=== PATIENT | male | born 1945 | race Two or more races ===

== ENCOUNTER 2024-06-12 12:42 | Inpatient (IN) | payer OTHER, MEDICARE ==
[~2024-06-12] VITALS: Ht 177.8 cm; Wt 97.1 kg
--- NOTE | 2024-06-12 14:01 | ED.PDOC ---
Musculoskeletal HPI Comments 78 year old male brought in by building appraiser presents to the ED with chief complaint of laceration and foot swelling. Patient reports that he had fallen sometime last night before bed, losing balance and injuring his left fifth toe, causing a laceration. Pari [employer] Ticket Cashier relays that upon seeing the patient today, she noticed the laceration along with redness and swelling to his foot. Pari [employer] Ticket Cashier states that the patient saw his PCP today and was advised to come to the ED for sutures to be placed. Patient denies any numbness, weakness, chest pain, head injury, SOB, or further injury at this time. Chief Complaint: Lower Extremity Time Seen by MD: 13:55 Primary Care Provider: UNKNOWN Reviewed Notes: Nurses Notes, Medications, Allergies Allergies: Coded Allergies: NO KNOWN ALLERGIES (Unverified , 06/12/24) Information Source: Patient, Friend Mode of Arrival: Wheelchair Location: Left Extremity Location: Toe 4 Timing: Hours Prehospital treatment: None Severity: Moderate Able to Move Extremity: Yes Bear Weight: Limited Pain: Moderate Mechanism: Spontaneous Circumstances: Work Related Onset of Symptoms: After Trauma Symptoms: Swelling, Pain, Erythema DVT Risk Factors: NONE Associated signs and symptoms: Foot pain Past Medical History PAST MEDICAL HISTORY: Cancer, HTN Surgical History: Denies all surgeries Family History Family History: Reviewed,noncontributory to illness Social History Smoker: Non-Smoker Alcohol: Denies ETOH Use Drugs: Denies Drug Use Lives In: Home Constitutional: denies: chills, diaphoresis, fatigue, fever, malaise, sweats, weakness, others EENTM: denies: blurred vision, double vision, ear bleeding, ear discharge, ear drainage, ear pain, ear ringing, eye pain, eye redness, hearing loss, mouth pain, mouth swelling, nasal discharge, nose bleeding, nose congestion, nose pain, photophobia, tearing, throat pain, throat swelling, voice changes, others Respiratory: denies: cough, hemoptysis, orthopnea, SOB at rest, shortness of breath, SOB with excertion, stridor, wheezing, others Cardiovascular: reports: edema; denies: chest pain, dizzy spells, diaphoresis, Dyspnea on exertion, irregular heart beat, left arm pain, lightheadedness, palpitations, PND, syncope, others Gastrointestinal: denies: abdomen distended, abdominal pain, blood streaked bowels, constipated, diarrhea, dysphagia, difficulty swallowing, hematemesis, melena, nausea, poor appetite, poor fluid intake, rectal bleeding, rectal pain, vomiting, others Genitourinary: denies: burning, dysuria, flank pain, frequency, hematuria, incontinence, penile discharge, penile sore, pain, testicle pain, testicle swe lling, urgency, others Neurological: denies: dizziness, fainting, headache, left sided numbness, left sided weakness, numbness, paresthesia, pre-existing deficit, right sided numbness, right sided weakness, seizure, speech problems, tingling, tremors, weakness, others Musculoskeletal: denies: back pain, gout, joint pain, joint swelling, muscle pain, muscle stiffness, neck pain, others Integumetry: reports: change in color, laceration; denies: bruises, change in hair/nails, dryness, lesions, lumps, rash, wounds, others Allergic/Immunocompromised: denies: Difficulty Healing, Frequent Infections, Hives, Itching, others Hematologic/Lymphatic: denies: anemia, blood clots, easy bleeding, easy bruising, swollen glands, others Endocrine: denies: excessive hunger, excessive sweating, excessive thirst, excessive urination, flushing, intolerance to cold, intolerance to heat, unexplained weight gain, unexplained weight loss, others Psychiatric: denies: anxiety, bipolar disorder, depression, hopeless, panic disorder, schizophrenia, sleepless, suicidal, others All Other Systems: Reviewed and Negative Physical Exam General Appearance: No Apparent Distress, Normal HEENT: Normal ENT Inspection, Pharynx Normal, TMs Normal Neck: Full Range of Motion, Non-Tender, Normal, Normal Inspection Respiratory: Chest Non-Tender, Lungs Clear, No Accessory Muscle Use, No Respiratory Distress, Normal Breath Sounds Cardiovascular: No Edema, No JVD, No Murmur, No Gallop, Normal Peripheral Pulses, Regular Rate/Rhythm Breast Exam: Deferred Gastrointestinal: No Organomegaly, Non Tender, No Pulsatile Mass, Normal Bowel Sounds, Soft Genitalia: Deferred Pelvic: Deferred Rectal: Deferred Extremities: Leg edema (Bilateral lower extremity swelling worse to left with 3+ pitting edema), No calf tenderness, Normal capillary refill, Normal inspecti on, Normal range of motion, Non-tender Musculoskeletal : Apperance: Normal Neurologic: Alert, broadband technician II-XII nml as Tested, Normal Affect, Normal Mood, No Sensory Deficits Cerebellar Function: Normal Reflexes: Normal Skin: Dry, Lacerations (Circular laceration to the webbed space between 4th and 5th left toes.), Normal Color, Warm, Other (Mild erythema to top of left foot.) Lymphatic: No Adenopathy Was a procedure done? Was a procedure done?: Yes Sedation Sedation?: No Laceration Repair : Location Left web space between 4th and 5th digit Length 2 cm Anesthetic: Lidocaine Laceration Repair Wound Comple: epidermis/dermis repair Laceration Repair: Number of sutures (6), Skin, Nylon Informed consent obtained: Yes Risks, benefits, and alternati: Yes Reduction Indication: Dislocation Sedation: Consents obtained, Intra-articular Intra-articular anesthetic thais: Yes Post-reduction x-ray show: Acceptable Alignment Informed consent obtained: Yes Risks/benefits/alt described: Yes Notes Patient with dislocation of his left 5th digit. Intra-articular anesthetic placed. Multiple reduction attempts were made. There was some improvement in the alignment of the displaced phalanx. Patient also states he may have had a dislocation in childhood. There may be a chronic component to his current dislocation per Differential Diagnosis EXT Differential Diagnosis: Other Other Differential Diagnosis cellulitis, laceration, fluid overload, intracranial hemorrhage, spine fracture, sprain, strain, unsteady gait, toe fracture, UTI X-Ray, Labs, Meds, VS Vital Signs Date Time Temp Pulse Resp B/P (MAP) Pulse Ox O2 Delivery O2 Flow Rate FiO2 06/12/24 17:51 171/79 06/12/24 13:00 99.0 75 20 144/96 (112) 94 99.0 Lab Test 06/12/24 18:04 06/12/24 13:41 06/12/24 12:59 Range/Units Urine Color Pending Urine Clarity Pending Urine pH Pending Urine Specific [place] Pending Urine Protein Pending Urine Ketones Pending Urine Blood Pending Urine Nitrite Pending Urine Bilirubin Pending Urine Urobilinogen Pending Urine Leukocyte Esterase Pending Urine RBC Pending Urine Microscopic WBC Pending Urine Squamous Epithelial Cells Pending Urine Bacteria Pending Urine Glucose Pending White Blood Count 6.9 4.4-10.8 10^3/uL Red Blood Count 3.56 L 4.5-5.90 10^6/uL Hemoglobin 13.4 L 13.5-17.5 g/dL Hematocrit 39.2 L 41.0-53.0 % Mean Corpuscular Volume 110.1 H 80.0-100.0 fL Mean Corpuscular Hemoglobin 37.7 H 28.0-32.0 pg Mean Corpuscular Hemoglobin Concent 34.3 32.0-36.0 g/dL Red Cell Distribution Width 16.6 H 11.8-14.3 % Platelet Count 195 140-450 10^3/uL Mean Platelet Volume 7.1 6.9-10.8 fL Neutrophils (%) (Auto) 78.1 37.0-80.0 % Lymphocytes (%) (Auto) 13.0 10.0-50.0 % Monocytes (%) (Auto) 7.0 0.0-12.0 % Eosinophils (%) (Auto) 0.7 0.0-7.0 % Basophils (%) (Auto) 1.2 0.0-2.0 % Neutrophils # (Auto) 5.4 1.6-8.6 10 ^3/uL Lymphocytes # (Auto) 0.9 0.4-5.4 10 ^3/uL Monocytes # (Auto) 0.5 0-1.3 10 ^3/uL Eosinophils # (Auto) 0 0-0.8 10 ^3/uL Basophils # (Auto) 0.1 0-0.2 10 ^3/uL Nucleated Red Blood Cells 0.1 % Sodium Level 142 136-145 mmol/L Potassium Level 3.4 L 3.5-5.1 mmol/L Chloride Level 102 98-107 mmol/L Carbon Dioxide Level 27 20-31 mmol/L Anion Gap 13 5-15 Blood Urea Nitrogen 25 H 9-23 mg/dL Creatinine 1.40 H 0.700-1.30 mg/dL Glomerular Filtration Rate Calc 51 >90 mL/min BUN/Creatinine Ratio 17.9 10.0-20.0 Serum Glucose 137 H 74-106 mg/dL Calcium Level 10.2 8.7-10.4 mg/dL POC Glucose 143 H 70-106 mg/dl Current Medications Medications (Trade) Dose Ordered Sig/Shilpa Route Start Time Stop Time Status Last Admin Furosemide (Lasix Injection) 40 mg ONCE ONCE IV 06/12/24 13:30 06/12/24 13:31 DC 06/12/24 17:51 Diphtheria/ Tetanus/Acell Pertussis (Boostrix T-Dap) 0.5 ml ONCE ONCE IM 06/12/24 13:30 06/12/24 13:31 DC 06/12/24 17:53 Cephalexin (Keflex Capsule) 500 mg ONCE ONCE PO 06/12/24 18:15 06/12/24 18:16 DC 06/12/24 18:40 78-year-old male presents here status post fall. He does not recall how or when he fell but does recall feeling unstable and fell sometime overnight. He does have a laceration to his left foot between the 4th and 5th webspace there is a circular laceration. He is exquisitely tender. X-ray has been done which does demonstrate subluxation of the phalanx. Also demonstrates small phalanx fracture. Multiple attempts were made by both myself and Bon MORENO with a ssistance of x-ray chemical processing technician to obtain immediate information about reduction. Partial reduction was achieved. Patient does state that he hurt his foot in childhood so it is possible there is a chronic component to this dislocation also. Laceration was cleaned and sutures placed. He does evidence of 3+ edema to the left lower extremity. Patient therefore has been given Lasix. Tetanus status has been updated. Additionally I have started him on Keflex given his open wound and phalanx fracture/to subluxation. At this time blood work has been done which demonstrates evidence of acute kidney injury but is otherwise largely unremarkable. There is mild evidence of cellulitis to his left foot. At this time patient does require diuresis of his extremities to allow for proper healing of his wound. Hospitalist team has been contacted for admission. Time of 1ST Reevaluation: 14:55 Reevaluation 1ST: Unchanged Patient Education/Counseling: Diagnosis, Treatment Family Education/Counseling: Diagnosis, Treatment Departure 1 Departure Time of Disposition: 14:30 Impression: Primary Impression: Cellulitis Qualified Codes: L03.116 - Cellulitis of left lower limb Additional Impressions: Fluid overload Qualified Codes: E87.70 - Fluid overload, unspecified PAMELA (acute kidney injury) Fracture of proximal phalanx of lesser toe of left foot Qualified Codes: S92.512B - Displaced fracture of proximal phalanx of left lesser toe(s), initial encounter for open fracture Laceration of lesser toe of left foot Qualified Codes: S91.215A - Laceration without foreign body of left lesser toe(s) with damage to nail, initial encounter Disposition: ADMITTED INPATIENT Condition: Guarded Critical Care Note Critical Care Time?: No Stability Stability form required: No Heart Score Heart Score: Heart Score Response (Comments) Value History N/A 0 EKG N/A 0 Age N/A 0 Risk Factors N/A 0 Troponin N/A 0 Total 0 I personally scribed for DONALD MEYER MD ([email or web address]) on 06/12/24 at 14:01. Electronically submitted by Bill Stallworth ([email or web address]). I personally scribed for DONALD MEYER MD ([email or web address]) on 06/12/24 at 14:23. Electronically submitted by Bill Stallworth ([email or web address]). I personally scribed for DONALD MEYER MD ([email or web address]) on 06/12/24 at 17:12. Electronically submitted by Bill Stallworth ([email or web address]). DONALD MEYER MD Jun 12, 2024 14:01
[2024-06-12 14:09] LABS: Basophils # (auto) 0.1 10 ^3/uL (0-0.2); Basophils % (auto) 1.2 % (0.0-2.0); Eosinophils # (auto) 0 10 ^3/uL (0-0.8); Eosinophils % (auto) 0.7 % (0.0-7.0); Hematocrit 39.2 % (41.0-53.0); Hemoglobin 13.4 g/dL (13.5-17.5); Lymphocytes # (auto) 0.9 10 ^3/uL (0.4-5.4); Mean Corpuscular Hemoglobin 37.7 pg (28.0-32.0); Mean Corpuscular Hgb Conc. 34.3 g/dL (32.0-36.0); Mean Corpuscular Volume 110.1 fL (80.0-100.0); Monocytes # (auto) 0.5 10 ^3/uL (0-1.3); Neutrophils # (auto) 5.4 10 ^3/uL (1.6-8.6); Neutrophils % (auto) 78.1 % (37.0-80.0); Nucleated Red Blood Cells % 0.1 %; Platelet Count (auto) 195 10^3/uL (140-450); Red Blood Cells 3.56 10^6/uL (4.5-5.90); Red Cell Distribution Width 16.6 % (11.8-14.3); White Blood Cell 6.9 10^3/uL (4.4-10.8)
[2024-06-12 14:11] LABS: Chloride 102 mmol/L (98-107); Sodium 142 mmol/L (136-145)
[2024-06-12 14:12] LABS: Anion Gap 13 (5-15); Calcium 10.2 mg/dL (8.7-10.4); Carbon Dioxide 27 mmol/L (20-31); Potassium 3.4 mmol/L (3.5-5.1)
[2024-06-12 14:17] LABS: BUN/Creatinine Ratio 17.9 (10.0-20.0)
[2024-06-12 14:18] LABS: Blood Urea Nitrogen 25 mg/dL (9-23); Glucose 137 mg/dL (74-106)
--- NOTE | 2024-06-12 14:35 | DVH ---
CLINICAL INDICATION: Trauma; ro fracture TECHNIQUE: 6 radiographic views of the left foot were obtained. Comparison: None FINDINGS/IMPRESSION: Lateral subluxation of the 5th proximal interphalangeal joint with avulsive fracture of the 5th proxi mal phalanx. Nondisplaced intra-articular fracture of the 5th middle phalanx.
--- NOTE | 2024-06-12 16:26 | DVH ---
CLINICAL INDICATION: S/P REDUCTION TECHNIQUE: 1-view left 2nd through 5th phalanges XY L FOOT 2 VIEW XRAY Comparison: XY L FOOT 3 VIEW XRAY on DOS: 06/12/24 FINDINGS/IMPRESSION: : There is no evidence of acute fracture or dislocation. Soft tissues are unremarkable.
[2024-06-12 17:30] VITALS: PULSE 97; RESP 16; O2SAT 98
[2024-06-12] MEDS: LIDOCAINE 2%HCL (LOCAL ANESTH.) INJ 10ml MDV IJ ONE (17:44)
[2024-06-12] MEDS: FUROSEMIDE 40 MG/4 ML VIAL IV ONE (17:51)
[2024-06-12] MEDS: TETANUS-DIPTH-ACEL PERTUSSIS 0.5ML SYR Tdap IM ONE (17:53)
[2024-06-12 18:17] LABS: Urine Bacteria None Seen /hpf (None Seen)
[2024-06-12] MEDS ORDERED: MAALOX PLUS or MAALOX 30 ML PO PRN (18:30)
[2024-06-12] MEDS ORDERED: ONDANSETRON HCL 4 MG/2 ML VIAL IV PRN (18:30)
[2024-06-12] MEDS ORDERED: DOCUSATE SOD 100 MG CAP PO PRN (18:30)
[2024-06-12] MEDS: CEPHALEXIN 250 MG CAP PO ONE (18:40)
--- NOTE | 2024-06-12 18:43 | DVHHP2 ---
History of Present Illness Reason for Visit: foot pain History of Present Illness 70-year-old male brought into the ED by his toe sewer due to a cut and laceration on his left 5th toe patient has a history hypertension as well as prostate cancer was initially supposed to be treated outpatient seen by his PCP who recommended that the patient requires sutures and ED evaluation patient had sutures placed in the ED was stated to have suspected cellulitis and recommended for admission at that point in time patient has of now will be placed in admission [facility] floor for further evaluation and management Cardiovascular: HTN Heme/Onc: Cancer Review of Systems Constitutional: Yes: Fever, Weakness; No: Chills, Sweats, Malaise, Other Eyes: No: Pain, Vision change, Conjunctivae inflammation, Eyelid inflammation, Other, Redness ENT: No: Ear pain, Ear discharge, Nose pain, Nose discharge, Nose congestion, Mouth pain, Mouth swelling, Throat pain, Throat swelling, Other Respiratory: No: Cough, Dry, Shortness of breath, SOB with excertion, Wheezing, Hemoptysis, Pleuritic Pain, Sputum, Wheezing, Other Cardiovascular: No: Chest Pain, Palpitations, Orthopnea, Paroxysmal Noc. Dyspnea, Edema, Lt Headedness, Other Genitourinary: No Dysuria, No Frequency, No Incontinence, No Hematuria, No Retention, No Other Musculoskeletal: No: other, neck pain, shoulder pain, arm pain, back pain, hand pain, leg pain, foot pain Skin: No: Rash, Lesions, Jaundice, Bruising, Other Neurological: Weakness Allergies: Coded Allergies: NO KNOWN ALLERGIES (Unverified , 06/12/24) Exam Vital Signs Vital Signs Date Time Temp Pulse Resp B/P (MAP) Pulse Ox O2 Delivery O2 Flow Rate FiO2 06/12/24 17:51 171/79 06/12/24 13:00 99.0 75 20 94 99.0 Exam General Appearance: No Apparent Distress, Normal HEENT: Normal ENT Inspection, Pharynx Normal, TMs Normal Neck: Full Range of Motion, Non-Tender, Normal, Normal Inspection Respiratory: Chest Non-Tender, Lungs Clear, No Accessory Muscle Use, No Respiratory Distress, Normal Breath Sounds Cardiovascular: No Edema, No JVD, No Murmur, No Gallop, Normal Peripheral Pulses, Regular Rate/Rhythm Breast Exam: Deferred Gastrointestinal: No Organomegaly, Non Tender, No Pulsatile Mass, Normal Bowel Sounds, Soft Genitalia: Deferred Pelvic: Deferred Rectal: Deferred Extremities: Leg edema (Bilateral lower extremity swelling worse to left with 3+ pitting edema), No calf tenderness, Normal capillary refill, Normal inspection, Normal range of motion, Non-tender Musculoskeletal : Apperance: Normal Neurologic: Alert, cloth finisher II-XII nml as Tested, Normal Affect, Normal Mood, No Sensory Deficits Cerebellar Function: Normal Reflexes: Normal Skin: Dry, Lacerations (Circular laceration to the webbed space between 4th and 5th left toes.), Normal Color, Warm, Other (Mild erythema to top of left foot.) Lymphatic: No Adenopathy Labs/Xrays Labs Test 06/12/24 18:04 06/12/24 13:41 06/12/24 12:59 Range/Units White Blood Count 6.9 4.4-10.8 10^3/uL Red Blood Count 3.56 L 4.5-5.90 10^6/uL Hemoglobin 13.4 L 13.5-17.5 g/dL Hematocrit 39.2 L 41.0-53.0 % Mean Corpuscular Volume 110.1 H 80.0-100.0 fL Mean Corpuscular Hemoglobin 37.7 H 28.0-32.0 pg Mean Corpuscular Hemoglobin Concent 34.3 32.0-36.0 g/dL Red Cell Distribution Width 16.6 H 11.8-14.3 % Platelet Count 195 140-450 10^3/uL Mean Platelet Volume 7.1 6.9-10.8 fL Neutrophils (%) (Auto) 78.1 37.0-80.0 % Lymphocytes (%) (Auto) 13.0 10.0-50.0 % Monocytes (%) (Auto) 7.0 0.0-12.0 % Eosinophils (%) (Auto) 0.7 0.0-7.0 % Basophils (%) (Auto) 1.2 0.0-2.0 % Neutrophils # (Auto) 5.4 1.6-8.6 10 ^3/uL Lymphocytes # (Auto) 0.9 0.4-5.4 10 ^3/uL Monocytes # (Auto) 0.5 0-1.3 10 ^3/uL Eosinophils # (Auto) 0 0-0.8 10 ^3/uL Basophils # (Auto) 0.1 0-0.2 10 ^3/uL Nucleated Red Blood Cells 0.1 % Sodium Level 142 136-145 mmol/L Potassium Level 3.4 L 3.5-5.1 mmol/L Chloride Level 102 98-107 mmol/L Carbon Dioxide Level 27 20-31 mmol/L Anion Gap 13 5-15 Blood Urea Nitrogen 25 H 9-23 mg/dL Creatinine 1.40 H 0.700-1.30 mg/dL Glomerular Filtration Rate Calc 51 >90 mL/min BUN/Creatinine Ratio 17.9 10.0-20.0 Serum Glucose 137 H 74-106 mg/dL Calcium Level 10.2 8.7-10.4 mg/dL POC Glucose 143 H 70-106 mg/dl Assessment/Plan Assessment/Plan Admit to [facility] Cellulitis L03.116 - Cellulitis of left lower limb Start IV antibiotics Fluid overload E87.70 - Fluid overload, unspecified Continue with 40 mg Lasix daily PAMELA (acute kidney injury) Fracture of proximal phalanx of lesser toe of left foot S92.512B - Displaced fracture of proximal phalanx of left lesser toe(s), initial encounter for open fracture Laceration of lesser toe of left foot S91.215A - Laceration without foreign body of left lesser toe(s) with damage to nail, initial encounter Plan discussed with: Patient My Orders Orders - JUDI HUTCHINSON MD Procedure Category Date Status Time Admit ADMIT 06/12/24 Verified 18:27 Code Status CODE 06/12/24 Verified 18:27 Vital Signs [facility] 06/12/24 Verified 18:27 Review Orders With IBAN 06/12/24 Verified Adm. 18:27 Consistent DIET 06/12/24 Verified Carb(Ccho)Diabetes Dinner Alum & Mag PHA 06/12/24 Verified Hydrox-Simethicone 18:30 Docusate Sodium PHA 06/12/24 Verified Capsule (Colace 18:30 Acetaminophen Tablet PHA 06/12/24 Verified (Tylenol Tablet) 18:30 Temazepam (Restoril) PHA 06/12/24 Verified 18:30 Notify Of Changes [facility] 06/12/24 Verified From Base 18:27 Advance Directive [facility] 06/12/24 Verified 18:27 Patient Condition ORDERS 06/12/24 Verified 18:27 Allergies [facility] 06/12/24 Verified 18:27 Ondansetron Hcl PHA 06/12/24 Verified (Zofran) 18:30 Notify Md Of Changes IBAN 06/12/24 Verified From Base 18:27 Oxygen By Nasal RT 06/12/24 Verified Cannula 18:27 Ceftriaxone Ivpb PHA 06/12/24 Verified Rocephin 18:30 Furosemide Injection PHA 06/13/24 Verified (Lasix Injection) 10:00 Date of Service: Jun 12, 2024 Billing Provider: JUDI HUTCHINSON MD Common Visit Codes: [id number] INP/OBS CARE (HIGH) JUDI HUTCHINSON MD Jun 12, 2024 18:43
[2024-06-12 18:47] LABS: Urine Blood 1+ /uL (Negative); Urine Clarity Clear (Clear); Urine Color Yellow (Yellow); Urine Protein, UAD 1+ (Negative); Urine Specific Gravity 1.025 (1.001-1.035); Urine Squamous Epithelial Cell None Seen /hpf (<5); Urine Urobilinogen Normal (Negative); Urine WBC 1 /HPF (0-3); Urine pH 5.5 (5.0-9.0)
[2024-06-12 20:00] VITALS: PULSE 97; RESP 16; O2SAT 96
[2024-06-12] MEDS: cefTRIAXone 1GM/50ML D5W 50 ML IV SCH (20:36)
[2024-06-12 21:01] VITALS: PULSE 97; RESP 16; O2SAT 96
[2024-06-12] MEDS: MORPHINE SULFATE INJ 2 MG/ml SYRG IV PRN (22:05)
[2024-06-12 22:06] VITALS: BP 142/64; PULSE 90; RESP 18; TEMP 98.8; O2SAT 92
[2024-06-13 01:30] VITALS: BP 134/79; PULSE 94; RESP 18; TEMP 99.1; O2SAT 95
[2024-06-13 05:41] VITALS: BP 128/82; PULSE 88; RESP 18; TEMP 98.6; O2SAT 96
[2024-06-13 09:19] VITALS: BP 113/71; PULSE 82; RESP 17; TEMP 98; O2SAT 96
[2024-06-13] MEDS: FUROSEMIDE 40 MG/4 ML VIAL IV SCH (09:28)
[2024-06-13 13:00] VITALS: BP 117/56; PULSE 85; RESP 18; TEMP 98.5; O2SAT 96
--- NOTE | 2024-06-13 13:39 | DVHPN2 ---
Reviewed: Care Plan, H&P, Labs, Medications, Previous Orders, Radiology Changes from previous H/P or p: No Changes Eyes: No Pain, No Vision change, No Conjunctivae inflammation, No Eyelid inflammation, No Other, No Redness ENT: No Ear pain, No Ear discharge, No Nose pain, No Nose discharge, No Nose congestion, No Mouth pain, No Mouth swelling, No Throat pain, No Throat swelling, No Other Cardiovascular: No Chest Pain, No Palpitations, No Orthopnea, No Paroxysmal Noc. Dyspnea, No Edema, No Lt Headedness, No Other Respiratory: No Cough, No Dry, No Shortness of breath, No SOB with excertion, No Wheezing, No Hemoptysis, No Pleuritic Pain, No Sputum, No Other Genitourinary: No Dysuria, No Frequency, No Incontinence, No Hematuria, No Retention, No Other Musculoskeletal: No other, No neck pain, No shoulder pain, No arm pain, No back pain, No hand pain, No leg pain, No foot pain Skin: No Rash, No Lesions, No Jaundice, No Bruising, No Other Objective Vitals Vital Signs Date Time Temp Pulse Resp B/P (MAP) Pulse Ox O2 Delivery O2 Flow Rate FiO2 06/13/24 09:31 92 18 133/74 06/13/24 09:19 98.0 96 98.0 06/12/24 22:00 Room Air* 0 21 Intake/Output Intake and Output 06/13/24 07:00 Intake Total 900 ml Output Total 1500 ml Balance -600 ml Intake Oral 800 ml IV Total 100 ml Output Urine Total 1500 ml Medications Current Medications Medications Dose Ordered Sig/Shilpa Route Start Time Stop Time Status Last Admin Dose Admin Al Hydrox/Mg Hydrox/Simethicone 30 ml Q6HP PRN PO 06/12/24 18:30 Docusate Sodium 100 mg BIDPRN PRN PO 06/12/24 18:30 Acetaminophen 650 mg Q6HP PRN PO 06/12/24 18:30 Temazepam 15 mg QHSP PRN PO 06/12/24 18:30 Ondansetron HCl 4 mg Q4HP PRN IV 06/12/24 18:30 Ceftriaxone Sodium 50 ml @ 100 mls/hr DAILY IV 06/12/24 18:30 06/13/24 09:34 100 MLS/HR Furosemide 40 mg DAILY IV 06/13/24 10:00 06/13/24 09:28 40 MG Morphine Sulfate 2 mg Q4HPRN PRN IV 06/12/24 21:45 06/13/24 09:31 2 MG Laboratory Results Laboratory Tests 06/12/24 13:41 Chemistry Test 06/12/24 13:41 Calcium Level 10.2 mg/dL (8.7-10.4) Urinalysis Test 06/12/24 18:04 Urine Color Yellow (Yellow) Urine Clarity Clear (Clear) Urine pH 5.5 (5.0-9.0) Urine Specific [place] 1.025 (1.001-1.035) Urine Protein 1+ (Negative) H Urine Ketones Negative (Negative) Urine Blood 1+ /uL (Negative) H Urine Nitrite Negative (Negative) Urine Bilirubin Negative (Negative) Urine Urobilinogen Normal mg/dL (Negative) Urine Leukocyte Esterase Negative /uL (Negative) Urine RBC 2 /hpf (0 - 3) Urine Microscopic WBC 1 /HPF (0-3) Urine Squamous Epithelial Cells None seen /hpf (<5) Urine Bacteria None seen /hpf (None Seen) Urine Glucose 2+ mg/dL (Normal) H Labs and/or images reviewed: Labs reviewed by me, Image(s) reviewed by me Assessment/Plan Assessment/Plan Subluxation PIP joint left 5th toe status post relocation by ER physician: Cellulitis left 5th toe : Scout, consult for podiatric Dr. Rm Hypertension History of prostate cancer Plan discussed with: Patient Date of Service: Jun 13, 2024 Billing Provider: HANSEL LOPEZ MD Common Visit Codes: [id number] INP/OBS CARE(HIGH) HANSEL LOPEZ MD Jun 13, 2024 13:39
[2024-06-13 17:00] VITALS: BP 151/78; PULSE 91; RESP 18; TEMP 98.3; O2SAT 92
[2024-06-13 21:00] VITALS: BP 135/67; PULSE 83; RESP 17; TEMP 96.5; O2SAT 95
[2024-06-14 01:00] VITALS: BP 129/77; PULSE 92; RESP 17; TEMP 97.1; O2SAT 96
[2024-06-14 05:00] VITALS: BP 114/75; PULSE 80; RESP 17; TEMP 96.3; O2SAT 93
[2024-06-14 09:00] VITALS: BP 140/59; PULSE 56; RESP 19; TEMP 97.9; O2SAT 94
[2024-06-14] MEDS: Pro-Stat SF 30ml Vanilla PO SCH (09:54)
[2024-06-14] MEDS: MULTIPLE VITAMINS W/ MINERALS TAB PO SCH (10:03)
[2024-06-14] MEDS: ASCORBIC ACID 500 MG TAB PO SCH (10:03)
--- NOTE | 2024-06-14 11:00 | DVHPN2 ---
Reviewed: Care Plan, H&P, Labs, Medications, Previous Orders, Radiology Changes from previous H/P or p: No Changes Eyes: No Pain, No Vision change, No Conjunctivae inflammation, No Eyelid inflammation, No Other, No Redness ENT: No Ear pain, No Ear discharge, No Nose pain, No Nose discharge, No Nose congestion, No Mouth pain, No Mouth swelling, No Throat pain, No Throat swelling, No Other Cardiovascular: No Chest Pain, No Palpitations, No Orthopnea, No Paroxysmal Noc. Dyspnea, No Edema, No Lt Headedness, No Other Respiratory: No Cough, No Dry, No Shortness of breath, No SOB with excertion, No Wheezing, No Hemoptysis, No Pleuritic Pain, No Sputum, No Other Genitourinary: No Dysuria, No Frequency, No Incontinence, No Hematuria, No Retention, No Other Musculoskeletal: No other, No neck pain, No shoulder pain, No arm pain, No back pain, No hand pain, No leg pain, No foot pain Skin: No Rash, No Lesions, No Jaundice, No Bruising, No Other Objective Vitals Vital Signs Date Time Temp Pulse Resp B/P (MAP) Pulse Ox O2 Delivery O2 Flow Rate FiO2 06/14/24 10:05 140/59 06/14/24 09:00 97.9 56 19 94 97.9 06/13/24 20:00 Room Air* 0 21 Intake/Output Intake and Output 06/14/24 07:00 Intake Total 515 ml Output Total 2400 ml Balance -1885 ml Intake Oral 465 ml IV Total 50 ml Output Urine Total 2400 ml Medications Current Medications Medications Dose Ordered Sig/Shilpa Route Start Time Stop Time Status Last Admin Dose Admin Al Hydrox/Mg Hydrox/Simethicone 30 ml Q6HP PRN PO 06/12/24 18:30 Docusate Sodium 100 mg BIDPRN PRN PO 06/12/24 18:30 Acetaminophen 650 mg Q6HP PRN PO 06/12/24 18:30 Temazepam 15 mg QHSP PRN PO 06/12/24 18:30 Ondansetron HCl 4 mg Q4HP PRN IV 06/12/24 18:30 Ceftriaxone Sodium 50 ml @ 100 mls/hr DAILY IV 06/12/24 18:30 06/14/24 10:01 100 MLS/HR Furosemide 40 mg DAILY IV 06/13/24 10:00 06/14/24 10:05 40 MG Morphine Sulfate 2 mg Q4HPRN PRN IV 06/12/24 21:45 06/13/24 22:07 2 MG Amino Acid Protein 30 ml DAILY PO 06/14/24 10:00 Ascorbic Acid 500 mg BID PO 06/14/24 10:00 06/14/24 10:03 500 MG Multivitamins/ Minerals 1 tab DAILY PO 06/14/24 10:00 06/14/24 10:03 1 TAB Laboratory Results Laboratory Tests 06/12/24 13:41 Urinalysis Test 06/12/24 18:04 Urine Color Yellow (Yellow) Urine Clarity Clear (Clear) Urine pH 5.5 (5.0-9.0) Urine Specific [place] 1.025 (1.001-1.035) Urine Protein 1+ (Negative) H Urine Ketones Negative (Negative) Urine Blood 1+ /uL (Negative) H Urine Nitrite Negative (Negative) Urine Bilirubin Negative (Negative) Urine Urobilinogen Normal mg/dL (Negative) Urine Leukocyte Esterase Negative /uL (Negative) Urine RBC 2 /hpf (0 - 3) Urine Microscopic WBC 1 /HPF (0-3) Urine Squamous Epithelial Cells None seen /hpf (<5) Urine Bacteria None seen /hpf (None Seen) Urine Glucose 2+ mg/dL (Normal) H Labs and/or images reviewed: Labs reviewed by me, Image(s) reviewed by me Assessment/Plan Assessment/Plan Subluxation PIP joint left 5th toe status post relocation by ER physician: Cellulitis left 5th toe : Rocephin, consult for podiatric Dr. Rm, add clindamycin Hypertension History of prostate cancer Plan discussed with: Patient My Orders Orders - HANSEL LOPEZ MD Procedure Category Date Status Time *Podiatry Consult CONS 06/13/24 Transmitted Sujey([facility]) 13:39 Apply Z-Guard IBAN 06/13/24 In Process 14:25 Cleanse Wound With IBAN 06/13/24 In Process Wound Clean 14:25 Change Dressing Prn IBAN 06/13/24 In Process 14:25 Date of Service: Jun 14, 2024 Billing Provider: HANSEL LOPEZ MD Common Visit Codes: [id number] INP/OBS CARE(HIGH) HANSEL LOPEZ MD Jun 14, 2024 11:00
--- NOTE | 2024-06-14 12:33 | DVH ---
CLINICAL INFORMATION: Acute loss of consciousness. Fall injury. TECHNIQUE: Axial imaging was obtained through the brain without contrast. Coronal and sagittal reform atted images were obtained, reviewed, and stored. Images were reviewed in brain and bone windows. Al l CT scans at this medical facility are performed using dose modulation techniques as appropriate to a performed exam including the following: Automated exposure control was utilized; adjustment of the MA and/or KV according to patient size; and use of iterative reconstruction technique. CTDIvol = 48.0 2 mGy DLP = 951.81 mGy-cm COMPARISON: None FINDINGS: There is no acute intracranial hemorrhage. No mass effect or midline shift. Scattered areas of hypoattenuation are seen in the periventricular and subcortical white matter, which are nonspecif ic but most likely sequelae of small vessel ischemic disease. The ventricles and sulci are within nor mal limits in size for age. Basal cisterns are patent. The calvarium is unremarkable. Paranasal sinu ses and mastoid air cells are clear. IMPRESSION: 1. No CT evidence of acute intracranial abnormality. 2. Nonacute findings as described above.
[2024-06-14 13:00] VITALS: BP 100/63; PULSE 68; RESP 16; TEMP 98.1; O2SAT 99
--- NOTE | 2024-06-14 14:12 | DVH ---
CT CHST AB PEL WO CON-NO IV/ORAL INDICATION: Altered mental status and confusion : 78 old Male Altered mental status and confusion EXAM DATE: 06/14/2024 11:51 AM COMPARISON: None RADIATION DOSE: CTDIvol: 47.95 mGy, DLP: 1811.57 mGy*cm PROCEDURE: Helical CT images were obtained of the chest, abdomen, and pelvis without intravenous cont rast. Sagittal and coronal reconstructions are provided. ORAL CONTRAST: None. ADDITIONAL IMAGES / REFORMATS: None All CT scans at this medical facility are performed using dose modulation techniques as appropriate t o a performed exam including the following: Automated exposure control was utilized; adjustment of th e MA and/or KV according to patient size; and use of iterative reconstruction technique. FINDINGS: CHEST: BONES: Scattered degenerative changes are noted in the visualized osseous structures. CHEST WALL: Normal. SOFT TISSUES:Normal. MEDIASTINUM: Normal. HEART: Normal. VESSELS: Normal. LYMPH NODES: Normal. PLEURA: Normal. AIRWAYS: Normal. LUNG: Mild emphysematous changes of the lungs. ABDOMEN AND PELVIS: BONES: Scattered degenerative changes are noted in the visualized osseous structures. Bilateral hip arthroplasties appear intact and in good alignment. LIVER: Hepatic steatosis. GALLBLADDER AND BILIARY TREE: No calcified gallstones. Normal caliber wall. No intra- or extrahepatic biliary ductal dilation. PANCREAS: Normal. SPLEEN: Normal. BOWEL: Moderate colonic diverticulosis. Normal appendix. ADRENALS: Normal. KIDNEYS AND URETER: Bilateral renal cystic lesion some of which are increased in density and could be hemorrhagic. BLADDER: [place] REPRODUCTIVE ORGANS: Normal. LYMPH NODES:No lymphadenopathy. PERITONEUM: No ascites or free air. No other fluid collection. VESSELS: Normal RETROPERITONEUM: Normal. ABDOMINAL WALL: Normal. IMPRESSION: No acute intrathoracic or intraabdominal abnormality. Moderate colonic diverticulosis. Mild emphysematous changes of the lungs. Hepatic steatosis.
[2024-06-14] MEDS ORDERED: ZOLP10TA6 PO (15:11)
[2024-06-14] MEDS ORDERED: METO25TA5 PO (15:11)
[2024-06-14] MEDS ORDERED: DAPA1TAB4 PO (15:11)
[2024-06-14] MEDS ORDERED: FURO40TA4 PO (15:11)
[2024-06-14] MEDS ORDERED: SACU1TAB PO (15:11)
[2024-06-14] MEDS ORDERED: APIX5TAB PO (15:11)
[2024-06-14] MEDS ORDERED: ATOR-507 PO (15:11)
[2024-06-14] MEDS: CLINDAMYCIN 300MG IV 50 ML IV SCH (15:56)
--- NOTE | 2024-06-14 16:14 | DVH ---
CLINICAL HISTORY: Cellulitis of the left foot. TECHNIQUE: Multi sequence multi planar MRI images of the left foot were obtained without IV contrast . COMPARISON: Radiographs dated 06/12/2024. FINDINGS: Motion artifact limits evaluation. Questionable subtle STIR hyperintense signal of the dis roopa aspect of the proximal phalanx of the 5th digit, may correlate to the avulsion injury associated with the dislocation seen on recent radiographs in this location. No other signal abnormality identif ied to suggest osteomyelitis. There is moderate subcutaneous edema along the dorsal aspect of the for efoot midfoot, which may correlate with reported clinical history of cellulitis. Mild soft tissue swe lling of the 5th digit, likely sequela of the recent injury. There is also mild tenosynovitis of the 5th digit extensor tendon as it courses along the plantar aspect of the proximal phalanx. The rest of the visualized tendons appear intact. Moderate fatty atrophy of the abductor digiti minimi muscle, m ay be seen sosa neuropathy in the appropriate clinical setting. IMPRESSION: 1. Motion limited study. 2. Posttraumatic changes in the 5th digit correlating with the recent dislocation avulsion injury see n on radiographs. 3. No evidence for osteomyelitis. Moderate subcutaneous edema along the dorsal aspect of the foot, ma y correlate with reported clinical history of cellulitis. No organized fluid collection identified to suggest abscess. 4. Additional findings as detailed above.
[2024-06-14 17:00] VITALS: BP 107/64; PULSE 99; RESP 20; TEMP 100.5; O2SAT 94
[2024-06-14 21:00] VITALS: BP 101/55; PULSE 86; RESP 20; TEMP 97.8; O2SAT 92
[2024-06-14] MEDS: TEMAZEPAM 15 MG CAP PO PRN (22:28)
[2024-06-15 01:00] VITALS: BP 103/61; PULSE 89; RESP 19; TEMP 97.3; O2SAT 91
[2024-06-15] MEDS: ACETAMINOPHEN 325 MG TAB PO PRN (04:49)
[2024-06-15 05:00] VITALS: BP 109/61; PULSE 90; RESP 19; TEMP 100.8; O2SAT 91
[2024-06-15 07:35] LABS: Alanine Aminotransferase 24 U/L (7-40); Alkaline Phosphatase 60 U/L (46-116); Anion Gap 12 (5-15); Aspartate Aminotransferase 22 U/L (13-40); BUN/Creatinine Ratio 17.1 (10.0-20.0); Calcium 8.8 mg/dL (8.7-10.4); Carbon Dioxide 30 mmol/L (20-31); Total Protein 5.8 g/dL (5.7-8.2)
[2024-06-15 07:48] LABS: Bilirubin, Total 1.7 mg/dL (0.2-1.0); Blood Urea Nitrogen 24 mg/dL (9-23); Chloride 93 mmol/L (98-107); Glucose 111 mg/dL (74-106); Potassium 2.8 mmol/L (3.5-5.1); Sodium 135 mmol/L (136-145)
[2024-06-15 09:00] VITALS: BP 121/64; PULSE 80; RESP 18; TEMP 99.7; O2SAT 93
[2024-06-15 09:49] LABS: Hepatitis B Surface Antibody Negative (Negative)
[2024-06-15 10:06] LABS: Hepatitis B Surface Antigen Negative (Negative)
--- NOTE | 2024-06-15 11:00 | DVHPN2 ---
Reviewed: Care Plan, H&P, Labs, Medications, Previous Orders, Radiology Changes from previous H/P or p: No Changes Eyes: No Pain, No Vision change, No Conjunctivae inflammation, No Eyelid inflammation, No Other, No Redness ENT: No Ear pain, No Ear discharge, No Nose pain, No Nose discharge, No Nose congestion, No Mouth pain, No Mouth swelling, No Throat pain, No Throat swelling, No Other Cardiovascular: No Chest Pain, No Palpitations, No Orthopnea, No Paroxysmal Noc. Dyspnea, No Edema, No Lt Headedness, No Other Respiratory: No Cough, No Dry, No Shortness of breath, No SOB with excertion, No Wheezing, No Hemoptysis, No Pleuritic Pain, No Sputum, No Other Genitourinary: No Dysuria, No Frequency, No Incontinence, No Hematuria, No Retention, No Other Musculoskeletal: No other, No neck pain, No shoulder pain, No arm pain, No back pain, No hand pain, No leg pain, No foot pain Skin: No Rash, No Lesions, No Jaundice, No Bruising, No Other Objective Vitals Vital Signs Date Time Temp Pulse Resp B/P (MAP) Pulse Ox O2 Delivery O2 Flow Rate FiO2 06/15/24 09:55 121/61 06/15/24 05:00 100.8 90 19 91 100.8 06/14/24 20:00 Room Air* 0 21 Intake/Output Intake and Output 06/15/24 07:00 Intake Total 2990 ml Output Total 2100 ml Balance 890 ml Intake Oral 2840 ml IV Total 150 ml Output Urine Total 2100 ml Medications Current Medications Medications Dose Ordered Sig/Shilpa Route Start Time Stop Time Status Last Admin Dose Admin Al Hydrox/Mg Hydrox/Simethicone 30 ml Q6HP PRN PO 06/12/24 18:30 Docusate Sodium 100 mg BIDPRN PRN PO 06/12/24 18:30 Acetaminophen 650 mg Q6HP PRN PO 06/12/24 18:30 06/15/24 04:49 650 MG Temazepam 15 mg QHSP PRN PO 06/12/24 18:30 06/14/24 22:28 15 MG Ondansetron HCl 4 mg Q4HP PRN IV 06/12/24 18:30 Ceftriaxone Sodium 50 ml @ 100 mls/hr DAILY IV 06/12/24 18:30 06/15/24 09:53 100 MLS/HR Furosemide 40 mg DAILY IV 06/13/24 10:00 06/15/24 09:55 40 MG Morphine Sulfate 2 mg Q4HPRN PRN IV 06/12/24 21:45 06/15/24 02:40 2 MG Amino Acid Protein 30 ml DAILY PO 06/14/24 10:00 Ascorbic Acid 500 mg BID PO 06/14/24 10:00 06/15/24 09:53 500 MG Multivitamins/ Minerals 1 tab DAILY PO 06/14/24 10:00 06/15/24 09:53 1 TAB Clindamycin Phosphate 50 ml @ 50 mls/hr Q8HR IV 06/14/24 14:00 06/15/24 04:49 50 MLS/HR Laboratory Results Laboratory Tests 06/12/24 13:41 06/15/24 06:34 Chemistry Test 06/15/24 06:34 Albumin 4.0 g/dL (3.2-4.8) Calcium Level 8.8 mg/dL (8.7-10.4) Total Protein 5.8 g/dL (5.7-8.2) LFT Test 06/15/24 06:34 Alanine Aminotransferase (ALT) 24 U/L (7-40) Alkaline Phosphatase 60 U/L (46-116) Aspartate Amino Transferase (AST) 22 U/L (13-40) Total Bilirubin 1.7 mg/dL (0.2-1.0) H Urinalysis Test 06/12/24 18:04 Urine Color Yellow (Yellow) Urine Clarity Clear (Clear) Urine pH 5.5 (5.0-9.0) Urine Specific [place] 1.025 (1.001-1.035) Urine Protein 1+ (Negative) H Urine Ketones Negative (Negative) Urine Blood 1+ /uL (Negative) H Urine Nitrite Negative (Negative) Urine Bilirubin Negative (Negative) Urine Urobilinogen Normal mg/dL (Negative) Urine Leukocyte Esterase Negative /uL (Negative) Urine RBC 2 /hpf (0 - 3) Urine Microscopic WBC 1 /HPF (0-3) Urine Squamous Epithelial Cells None seen /hpf (<5) Urine Bacteria None seen /hpf (None Seen) Urine Glucose 2+ mg/dL (Normal) H Labs and/or images reviewed: Labs reviewed by me, Image(s) reviewed by me Assessment/Plan Assessment/Plan Subluxation PIP joint left 5th toe status post relocation by ER physician: MRI foot shows no osteomyelitis Cellulitis left 5th toe : Rocephin, and clindamycin, consult for special assets officer Dr. Rm, Hypertension History of prostate cancer CT head negative CT chest abdomen pelvis without contrast negative History of atrial fibrillation: Continue Eliquis Hypertension Hypercholesterolemia Acute on chronic CHF exacerbation History of skin cancer History of bilateral knee replacement Caregiver Curtis [phone] at bedside Patient does not want any information to be given to his son about his health condition Plan discussed with: Patient My Orders Orders - HANSEL LOPEZ MD Procedure Category Date Status Time Clindamycin 300mg Iv PHA 06/14/24 In Process (Cleocin Iv) 14:00 Mri L Foot Wo Contrast MRI 06/14/24 Resulted 11:01 Chst Ab Pel Wo Con-No CT 06/14/24 Resulted Iv/Oral 11:[address] 06/14/24 Resulted 11:27 Date of Service: Jun 15, 2024 Billing Provider: HANSEL LOPEZ MD Common Visit Codes: [id number] INP/OBS CARE(HIGH) HANSEL LOPEZ MD Jun 15, 2024 11:00
[2024-06-15] MEDS: POTASSIUM EFFERVESENT TAB 25 MEQ PO ONE (12:33)
[2024-06-15 13:00] VITALS: BP 104/52; PULSE 77; RESP 19; TEMP 100.2; O2SAT 92
--- NOTE | 2024-06-15 13:59 | DVHINCON2 ---
Date Seen: Jun 15, 2024 Reason for Consultation Foot laceration History of Present Illness 70-year-old male brought into the ED by his route rider due to a cut and laceration on his left 5th toe patient has a history hypertension as well as prostate cancer was initially supposed to be treated outpatient seen by his PCP who recommended that the patient requires sutures and ED evaluation patient had sutures placed in the ED was stated to have suspected cellulitis and recommended for admission at that point in time patient has of now will be placed in admission to med surge floor for further evaluation and management Past Medical History See H&P Past Surgical History See H&P Family History: FH: cancer G8 MOTHER G8 FATHER Allergies: Coded Allergies: NO KNOWN ALLERGIES (Unverified , 06/12/24) Home Meds Reported Medications Zolpidem Tartrate (Zolpidem Tartrate) 10 Mg Tab, 1 TAB PO QPM, #30 TAB 2 Refills 06/14/24 Sacubitril-Valsartan (Entresto 24-26 mg) 1 Tab Tab, 1 TAB PO BID, TAB 06/14/24 Apixaban Base (ELIQUIS) 5 Mg Tab, 5 MG PO BID, TAB 06/14/24 Furosemide (Furosemide) 40 Mg Tab, 40 MG PO DAILY for 30 Days 06/14/24 Atorvastatin Calcium (Lipitor) 40 Mg Tab, 40 TAB PO QPM, #90 TAB 1 Refill 06/14/24 Metoprolol Tartrate (Metoprolol Tartrate) 25 Mg Tab, 25 MG PO DAILY for 30 Days, MG 06/14/24 Dapagliflozin Propanediol (Farxiga) 10 Mg Tab, 10 MG PO DAILY, TAB 06/14/24 Current Medications Current Medications Medications (Trade) Dose Ordered Sig/Shilpa Route PRN Reason Start Time Stop Time Status Last Admin Clindamycin Phosphate 50 ml @ 50 mls/hr Q8HR IV 06/14/24 14:00 06/15/24 04:49 Potassium Bicarbonate (Klor-Con/Ef) 50 meq DAILY PO 06/16/24 10:00 Vital Signs Vital Signs Date Time Temp Pulse Resp B/P (MAP) Pulse Ox O2 Delivery O2 Flow Rate FiO2 06/15/24 13:00 100.2 77 19 104/52 (69) 92 100.2 06/15/24 08:05 Room Air* 0 21 Physical Exam Dermatological: Skin is dry with mild erythema and some maceration around the wound site No gross deformities noted Mild non-pitting edema present bilaterally Laceration with sutures to the left lateral 5th toe Vascular: Dorsalis pedis and posterior tibial pulses are 1+ bilaterally Capillary refill is under 2 seconds Skin temperature is warm bilaterally Neurologic: Protective sensation is absent on the plantar forefoot bilaterally Monofilament testing reveals decreased sensation in multiple plantar sites Musculoskeletal: Range of motion at the ankle and MTP joints is within normal limits. Strength is 5/5 in all tested muscle groups. Gait is antalgic due to offloading of the affected limb. Labs/Diagnostic Data Labs Test 06/15/24 06:34 06/12/24 18:04 06/12/24 13:41 06/12/24 12:59 Range/Units Sodium Level 135 #L 136-145 mmol/L Potassium Level 2.8 L 3.5-5.1 mmol/L Chloride Level 93 L 98-107 mmol/L Carbon Dioxide Level 30 20-31 mmol/L Anion Gap 12 5-15 Blood Urea Nitrogen 24 H 9-23 mg/dL Creatinine 1.40 H 0.700-1.30 mg/dL Glomerular Filtration Rate Calc 51 >90 mL/min BUN/Creatinine Ratio 17.1 10.0-20.0 Serum Glucose 111 H 74-106 mg/dL Calcium Level 8.8 8.7-10.4 mg/dL Total Bilirubin 1.7 H 0.2-1.0 mg/dL Aspartate Amino Transferase (AST) 22 13-40 U/L Alanine Aminotransferase (ALT) 24 7-40 U/L Alkaline Phosphatase 60 46-116 U/L Total Protein 5.8 5.7-8.2 g/dL Albumin 4.0 3.2-4.8 g/dL Urine Color Yellow Yellow Urine Clarity Clear Clear Urine pH 5.5 5.0-9.0 Urine Specific [place] 1.025 1.001-1.035 Urine Protein 1+ H Negative Urine Ketones Negative Negative Urine Blood 1+ H Negative /uL Urine Nitrite Negative Negative Urine Bilirubin Negative Negative Urine Urobilinogen Normal Negative mg/dL Urine Leukocyte Esterase Negative Negative /uL Urine RBC 2 0 - 3 /hpf Urine Microscopic WBC 1 0-3 /HPF Urine Squamous Epithelial Cells None seen <5 /hpf Urine Bacteria None seen None Seen /hpf Urine Glucose 2+ H Normal mg/dL White Blood Count 6.9 4.4-10.8 10^3/uL Red Blood Count 3.56 L 4.5-5.90 10^6/uL Hemoglobin 13.4 L 13.5-17.5 g/dL Hematocrit 39.2 L 41.0-53.0 % Mean Corpuscular Volume 110.1 H 80.0-100.0 fL Mean Corpuscular Hemoglobin 37.7 H 28.0-32.0 pg Mean Corpuscular Hemoglobin Concent 34.3 32.0-36.0 g/dL Red Cell Distribution Width 16.6 H 11.8-14.3 % Platelet Count 195 140-450 10^3/uL Mean Platelet Volume 7.1 6.9-10.8 fL Neutrophils (%) (Auto) 78.1 37.0-80.0 % Lymphocytes (%) (Auto) 13.0 10.0-50.0 % Monocytes (%) (Auto) 7.0 0.0-12.0 % Eosinophils (%) (Auto) 0.7 0.0-7.0 % Basophils (%) (Auto) 1.2 0.0-2.0 % Neutrophils # (Auto) 5.4 1.6-8.6 10 ^3/uL Lymphocytes # (Auto) 0.9 0.4-5.4 10 ^3/uL Monocytes # (Auto) 0.5 0-1.3 10 ^3/uL Eosinophils # (Auto) 0 0-0.8 10 ^3/uL Basophils # (Auto) 0.1 0-0.2 10 ^3/uL Nucleated Red Blood Cells 0.1 % Hepatitis B Surface Antigen Negative Negative Hepatitis B Surface Antibody Negative Negative POC Glucose 143 H 70-106 mg/dl Problems(with codes): (1) Fluid overload (2) Cellulitis (3) PAMELA (acute kidney injury) (4) Fracture of proximal phalanx of lesser toe of left foot (5) Laceration of lesser toe of left foot Plan/Recommendation ASSESSMENT: Patient is a 78-year-old seen on the floor for left 5th toe laceration PLAN: X-ray of the foot and ankle obtained to confirm fracture and assessed displacement Reviewed imaging which showed Fracture appears to be stable Sutures appear to be intact with no signs of dehiscence Recommend patient gets postop shoe to ambulate Recommend suture removal in 2-3 weeks All questions were answered, and concerns addressed to the patients satisfaction. Patient is to contact the clinic should any concerns or questions arise. Patient understands that if any questions or concerns arise prior to the next appointment, I should be contacted immediately. FOLLOW-UP: RTC in 1 week for follow up REQUEST: None DISPENSE: None Plan discussed with: Patient Date of Service: Jun 15, 2024 Billing Provider: CLAYTON LI DPM Common Visit Codes: CONSULT ONLY Consultation Codes: [id number] CONSULT <80MIN CLAYTON LI DPM Jun 15, 2024 13:59
[2024-06-15 17:00] VITALS: BP 110/52; PULSE 112; RESP 18; TEMP 99.2; O2SAT 96
[2024-06-15 21:00] VITALS: BP 107/55; PULSE 89; RESP 16; TEMP 100.5; O2SAT 94
[2024-06-16] VITALS (7 sets, daily range): BP systolic 85–132; BP diastolic 49–67; PULSE 81–116; RESP 16–19; TEMP 98–99.8; O2SAT 92–98
[2024-06-16 01:36] LABS: COVID19 ANTIGEN SOFIA FIA NEGATIVE (NEGATIVE)
--- NOTE | 2024-06-16 09:13 | DVHPN2 ---
Reviewed: Care Plan, H&P, Labs, Medications, Previous Orders, Radiology Changes from previous H/P or p: No Changes Eyes: No Pain, No Vision change, No Conjunctivae inflammation, No Eyelid inflammation, No Other, No Redness ENT: No Ear pain, No Ear discharge, No Nose pain, No Nose discharge, No Nose congestion, No Mouth pain, No Mouth swelling, No Throat pain, No Throat swelling, No Other Cardiovascular: No Chest Pain, No Palpitations, No Orthopnea, No Paroxysmal Noc. Dyspnea, No Edema, No Lt Headedness, No Other Respiratory: No Cough, No Dry, No Shortness of breath, No SOB with excertion, No Wheezing, No Hemoptysis, No Pleuritic Pain, No Sputum, No Other Genitourinary: No Dysuria, No Frequency, No Incontinence, No Hematuria, No Retention, No Other Musculoskeletal: No other, No neck pain, No shoulder pain, No arm pain, No back pain, No hand pain, No leg pain, No foot pain Skin: No Rash, No Lesions, No Jaundice, No Bruising, No Other Objective Vitals Vital Signs Date Time Temp Pulse Resp B/P (MAP) Pulse Ox O2 Delivery O2 Flow Rate FiO2 06/16/24 08:55 99.8 107 17 102/53 (69) 93 99.8 06/16/24 08:07 Room Air* 0 21 Intake/Output Intake and Output 06/16/24 07:00 Intake Total 1830 ml Output Total 1965 ml Balance -135 ml Intake Oral 1780 ml IV Total 50 ml Output Urine Total 1965 ml Medications Current Medications Medications Dose Ordered Sig/Shilpa Route Start Time Stop Time Status Last Admin Dose Admin Al Hydrox/Mg Hydrox/Simethicone 30 ml Q6HP PRN PO 06/12/24 18:30 Docusate Sodium 100 mg BIDPRN PRN PO 06/12/24 18:30 Acetaminophen 650 mg Q6HP PRN PO 06/12/24 18:30 06/15/24 21:56 650 MG Temazepam 15 mg QHSP PRN PO 06/12/24 18:30 06/15/24 21:47 15 MG Ondansetron HCl 4 mg Q4HP PRN IV 06/12/24 18:30 Ceftriaxone Sodium 50 ml @ 100 mls/hr DAILY IV 06/12/24 18:30 06/15/24 09:53 100 MLS/HR Furosemide 40 mg DAILY IV 06/13/24 10:00 06/15/24 09:55 40 MG Morphine Sulfate 2 mg Q4HPRN PRN IV 06/12/24 21:45 06/15/24 17:30 2 MG Amino Acid Protein 30 ml DAILY PO 06/14/24 10:00 Ascorbic Acid 500 mg BID PO 06/14/24 10:00 06/15/24 21:46 500 MG Multivitamins/ Minerals 1 tab DAILY PO 06/14/24 10:00 06/15/24 09:53 1 TAB Clindamycin Phosphate 50 ml @ 50 mls/hr Q8HR IV 06/14/24 14:00 06/16/24 06:19 50 MLS/HR Potassium Bicarbonate 50 meq DAILY PO 06/16/24 10:00 Laboratory Results Laboratory Tests 06/12/24 13:41 06/15/24 06:34 Urinalysis Test 06/12/24 18:04 Urine Color Yellow (Yellow) Urine Clarity Clear (Clear) Urine pH 5.5 (5.0-9.0) Urine Specific [place] 1.025 (1.001-1.035) Urine Protein 1+ (Negative) H Urine Ketones Negative (Negative) Urine Blood 1+ /uL (Negative) H Urine Nitrite Negative (Negative) Urine Bilirubin Negative (Negative) Urine Urobilinogen Normal mg/dL (Negative) Urine Leukocyte Esterase Negative /uL (Negative) Urine RBC 2 /hpf (0 - 3) Urine Microscopic WBC 1 /HPF (0-3) Urine Squamous Epithelial Cells None seen /hpf (<5) Urine Bacteria None seen /hpf (None Seen) Urine Glucose 2+ mg/dL (Normal) H Labs and/or images reviewed: Labs reviewed by me, Image(s) reviewed by me Assessment/Plan Assessment/Plan Subluxation PIP joint left 5th toe status post relocation by ER physician: MRI foot shows no osteomyelitis Laceration lesser toe left foot, sutured Cellulitis left 5th toe : Rocephin, and clindamycin, consult for clear coat sprayer Dr. Rm, Hypertension History of prostate cancer CT head negative CT chest abdomen pelvis without contrast negative History of atrial fibrillation: Continue Eliquis Hypertension Hypercholesterolemia Acute on chronic CHF exacerbation History of skin cancer left upper arm status post surgery and sutured one week ago History of bilateral knee replacement Caregiver Curtis [phone] at bedside Patient does not want any information to be given to his son about his health condition Midline ordered Plan discussed with: Patient My Orders Orders - HANSEL LOPEZ MD Procedure Category Date Status Time Potassium Effervesent PHA 06/16/24 In Process Tab (Klor-Con/Ef) 10:00 Communication Order ORDERS 06/15/24 Transmitted 11:00 Pt Request For Service PT 06/15/24 Logged 11:01 Date of Service: Jun 16, 2024 Billing Provider: HANSEL LOPEZ MD Common Visit Codes: [id number] INP/OBS CARE(HIGH) HANSEL LOPEZ MD Jun 16, 2024 09:13
[2024-06-16] MEDS: POTASSIUM EFFERVESENT TAB 25 MEQ PO SCH (09:42)
--- NOTE | 2024-06-16 19:16 | DVH ---
CLINICAL INDICATION: PAIN, SWELLING S/P MECHANICAL FALL AT HOME TECHNIQUE: 3 radiographic views of the left wrist were obtained. Comparison: XY L FOOT 2 VIEW XRAY on DOS: 06/12/24 FINDINGS/IMPRESSION: There is bony irregularity of the distal ulnar styloid which may represent fracture of unknown chroni city. Recommend correlation with point tenderness . Otherwise, no evidence of acute traumatic fract ures or dislocations. Severe degenerative changes of the 1st carpometacarpal joint
[2024-06-17 01:00] VITALS: BP 123/60; PULSE 117; RESP 16; TEMP 99.9; O2SAT 92
[2024-06-17 05:00] VITALS: BP 126/79; PULSE 93; RESP 17; TEMP 97.5; O2SAT 92
[2024-06-17 09:00] VITALS: BP 106/53; PULSE 88; RESP 19; TEMP 99.2; O2SAT 95
--- NOTE | 2024-06-17 09:30 | DVHPN2 ---
Reviewed: Care Plan, H&P, Labs, Medications, Previous Orders, Radiology Changes from previous H/P or p: No Changes Eyes: No Pain, No Vision change, No Conjunctivae inflammation, No Eyelid inflammation, No Other, No Redness ENT: No Ear pain, No Ear discharge, No Nose pain, No Nose discharge, No Nose congestion, No Mouth pain, No Mouth swelling, No Throat pain, No Throat swelling, No Other Cardiovascular: No Chest Pain, No Palpitations, No Orthopnea, No Paroxysmal Noc. Dyspnea, No Edema, No Lt Headedness, No Other Respiratory: No Cough, No Dry, No Shortness of breath, No SOB with excertion, No Wheezing, No Hemoptysis, No Pleuritic Pain, No Sputum, No Other Genitourinary: No Dysuria, No Frequency, No Incontinence, No Hematuria, No Retention, No Other Musculoskeletal: No other, No neck pain, No shoulder pain, No arm pain, No back pain, No hand pain, No leg pain, No foot pain Skin: No Rash, No Lesions, No Jaundice, No Bruising, No Other Objective Vitals Vital Signs Date Time Temp Pulse Resp B/P (MAP) Pulse Ox O2 Delivery O2 Flow Rate FiO2 06/17/24 08:38 100/60 06/17/24 08:10 Room Air* 0 21 06/17/24 06:10 77 17 06/17/24 05:00 97.5 92 97.5 Intake/Output Intake and Output 06/17/24 07:00 Intake Total 840 ml Output Total 1700 ml Balance -860 ml Intake Oral 740 ml IV Total 100 ml Output Urine Total 1700 ml Medications Current Medications Medications Dose Ordered Sig/Shilpa Route Start Time Stop Time Status Last Admin Dose Admin Al Hydrox/Mg Hydrox/Simethicone 30 ml Q6HP PRN PO 06/12/24 18:30 Docusate Sodium 100 mg BIDPRN PRN PO 06/12/24 18:30 Acetaminophen 650 mg Q6HP PRN PO 06/12/24 18:30 06/17/24 06:23 650 MG Temazepam 15 mg QHSP PRN PO 06/12/24 18:30 06/15/24 21:47 15 MG Ondansetron HCl 4 mg Q4HP PRN IV 06/12/24 18:30 Ceftriaxone Sodium 50 ml @ 100 mls/hr DAILY IV 06/12/24 18:30 06/17/24 08:36 100 MLS/HR Furosemide 40 mg DAILY IV 06/13/24 10:00 06/17/24 08:38 40 MG Morphine Sulfate 2 mg Q4HPRN PRN IV 06/12/24 21:45 06/17/24 05:40 2 MG Amino Acid Protein 30 ml DAILY PO 06/14/24 10:00 Ascorbic Acid 500 mg BID PO 06/14/24 10:00 06/17/24 08:36 500 MG Multivitamins/ Minerals 1 tab DAILY PO 06/14/24 10:00 06/17/24 08:36 1 TAB Clindamycin Phosphate 50 ml @ 50 mls/hr Q8HR IV 06/14/24 14:00 06/17/24 05:39 50 MLS/HR Potassium Bicarbonate 50 meq DAILY PO 06/16/24 10:00 06/17/24 08:36 50 MEQ Laboratory Results Laboratory Tests 06/12/24 13:41 06/15/24 06:34 Urinalysis Test 06/12/24 18:04 Urine Color Yellow (Yellow) Urine Clarity Clear (Clear) Urine pH 5.5 (5.0-9.0) Urine Specific [place] 1.025 (1.001-1.035) Urine Protein 1+ (Negative) H Urine Ketones Negative (Negative) Urine Blood 1+ /uL (Negative) H Urine Nitrite Negative (Negative) Urine Bilirubin Negative (Negative) Urine Urobilinogen Normal mg/dL (Negative) Urine Leukocyte Esterase Negative /uL (Negative) Urine RBC 2 /hpf (0 - 3) Urine Microscopic WBC 1 /HPF (0-3) Urine Squamous Epithelial Cells None seen /hpf (<5) Urine Bacteria None seen /hpf (None Seen) Urine Glucose 2+ mg/dL (Normal) H Labs and/or images reviewed: Labs reviewed by me, Image(s) reviewed by me Assessment/Plan Assessment/Plan Subluxation PIP joint left 5th toe status post relocation by ER physician: MRI foot shows no osteomyelitis Laceration lesser toe left foot, sutured Cellulitis left 5th toe : Rocephin, and clindamycin, consult for instructional technologist Dr. Rm appreciated, Hypertension History of prostate cancer CT head negative CT chest abdomen pelvis without contrast negative History of atrial fibrillation: Continue Eliquis Hypertension Left wrist pain: X-ray negative for any acute fracture, will order CT left hand and CT left wrist, will check uric acid to rule out gout, [place] 10 q.6 p.r.n. Hypercholesterolemia Acute on chronic CHF exacerbation History of skin cancer left upper arm status post surgery and sutured one week ago History of bilateral knee replacement Caregiver Curtis [phone] at bedside Patient does not want any information to be given to his son about his health condition Midline ordered Plan discussed with: Patient My Orders Orders - HANSEL LOPEZ MD Procedure Category Date Status Time L Wrist 2 View Xray XY 06/16/24 Resulted 16:04 Date of Service: Jun 17, 2024 Billing Provider: HANSEL LOPEZ MD Common Visit Codes: [id number] INP/OBS CARE(HIGH) HANSEL LOPEZ MD Jun 17, 2024 09:30
[2024-06-17] MEDS: HYDROcodone-ACET 10/325MG TAB PO PRN (09:57)
--- NOTE | 2024-06-17 10:56 | DVH ---
CLINICAL INDICATION: 78 years old, Male; Severe pain secondary to fall. TECHNIQUE: Noncontrast CT of the left hand was performed. Sagittal and coronal reformatted images are provided. COMPARISON: None CT Dose: CTDI volume is 7.8 mGy. Dose-length product is 170 mGy*cm FINDINGS: No fracture or dislocation. Radiocarpal joint space narrowing. There are subchondral cysts in the ca rpal bones. No abnormal alignment. Soft tissues are unremarkable. IMPRESSION: 1. No acute fracture. All CT scans at this medical facility are performed using dose modulation techniques as appropriate t o a performed exam including the following: Automated exposure control was utilized; adjustment of th e MA and/or KV according to patient size; and use of iterative reconstruction technique.
--- NOTE | 2024-06-17 11:04 | DVH ---
CLINICAL INDICATION: 78 years old, Male; Severe Pain secondary to fall. TECHNIQUE: Noncontrast CT of the left wrist was performed. Sagittal and coronal reformatted images ar e provided. COMPARISON: Radiographs of the left wrist performed on 06/16/2024. CT Dose: CTDI volume is 7.75 mGy. Dose-length product is 343.96 mGy*cm FINDINGS: No fracture or dislocation. Degenerative changes in the wrist. Severe joint space narrowin g of the 1st carpometacarpal joint with osteophytes noted. Mild soft tissue swelling in the wrist. IMPRESSION: 1. No acute fracture or dislocation. 2. Degenerative changes. 3. Soft tissue swelling. All CT scans at this medical facility are performed using dose modulation techniques as appropriate t o a performed exam including the following: Automated exposure control was utilized; adjustment of th e MA and/or KV according to patient size; and use of iterative reconstruction technique.
[2024-06-17 13:00] VITALS: BP 94/57; PULSE 91; RESP 19; TEMP 99.3; O2SAT 94
[2024-06-17 17:00] VITALS: BP 111/63; PULSE 102; RESP 19; TEMP 98.7; O2SAT 95
[2024-06-17 21:00] VITALS: BP 91/70; PULSE 91; RESP 20; TEMP 98.5; O2SAT 95
[2024-06-18 01:00] VITALS: BP 111/61; PULSE 84; RESP 20; TEMP 98.8; O2SAT 95
[2024-06-18 05:00] VITALS: BP 118/47; PULSE 91; RESP 20; TEMP 99.5; O2SAT 94
--- NOTE | 2024-06-18 08:50 | DVHPN2 ---
Reviewed: Care Plan, H&P, Labs, Medications, Previous Orders, Radiology Changes from previous H/P or p: No Changes Eyes: No Pain, No Vision change, No Conjunctivae inflammation, No Eyelid inflammation, No Other, No Redness ENT: No Ear pain, No Ear discharge, No Nose pain, No Nose discharge, No Nose congestion, No Mouth pain, No Mouth swelling, No Throat pain, No Throat swelling, No Other Cardiovascular: No Chest Pain, No Palpitations, No Orthopnea, No Paroxysmal Noc. Dyspnea, No Edema, No Lt Headedness, No Other Respiratory: No Cough, No Dry, No Shortness of breath, No SOB with excertion, No Wheezing, No Hemoptysis, No Pleuritic Pain, No Sputum, No Other Genitourinary: No Dysuria, No Frequency, No Incontinence, No Hematuria, No Retention, No Other Musculoskeletal: No other, No neck pain, No shoulder pain, No arm pain, No back pain, No hand pain, No leg pain, No foot pain Skin: No Rash, No Lesions, No Jaundice, No Bruising, No Other Objective Vitals Vital Signs Date Time Temp Pulse Resp B/P (MAP) Pulse Ox O2 Delivery O2 Flow Rate FiO2 06/18/24 05:00 99.5 91 20 118/47 (70) 94 99.5 06/17/24 20:00 Room Air* 0 21 Intake/Output Intake and Output 06/18/24 07:00 Intake Total 1450 ml Output Total 1750 ml Balance -300 ml Intake Oral 1350 ml IV Total 100 ml Output Urine Total 1750 ml Medications Current Medications Medications Dose Ordered Sig/Shilpa Route Start Time Stop Time Status Last Admin Dose Admin Al Hydrox/Mg Hydrox/Simethicone 30 ml Q6HP PRN PO 06/12/24 18:30 Docusate Sodium 100 mg BIDPRN PRN PO 06/12/24 18:30 Acetaminophen 650 mg Q6HP PRN PO 06/12/24 18:30 06/17/24 06:23 650 MG Temazepam 15 mg QHSP PRN PO 06/12/24 18:30 06/15/24 21:47 15 MG Ondansetron HCl 4 mg Q4HP PRN IV 06/12/24 18:30 Ceftriaxone Sodium 50 ml @ 100 mls/hr DAILY IV 06/12/24 18:30 06/17/24 08:36 100 MLS/HR Furosemide 40 mg DAILY IV 06/13/24 10:00 06/17/24 08:38 40 MG Morphine Sulfate 2 mg Q4HPRN PRN IV 06/12/24 21:45 Hold 06/17/24 05:40 2 MG Amino Acid Protein 30 ml DAILY PO 06/14/24 10:00 Ascorbic Acid 500 mg BID PO 06/14/24 10:00 06/17/24 21:40 500 MG Multivitamins/ Minerals 1 tab DAILY PO 06/14/24 10:00 06/17/24 08:36 1 TAB Clindamycin Phosphate 50 ml @ 50 mls/hr Q8HR IV 06/14/24 14:00 06/18/24 05:34 50 MLS/HR Potassium Bicarbonate 50 meq DAILY PO 06/16/24 10:00 06/17/24 08:36 50 MEQ Acetaminophen/ Hydrocodone Bitart 1 tab Q6HP PRN PO 06/17/24 09:30 06/17/24 22:17 1 TAB Laboratory Results Laboratory Tests 06/12/24 13:41 06/15/24 06:34 Urinalysis Test 06/12/24 18:04 Urine Color Yellow (Yellow) Urine Clarity Clear (Clear) Urine pH 5.5 (5.0-9.0) Urine Specific [place] 1.025 (1.001-1.035) Urine Protein 1+ (Negative) H Urine Ketones Negative (Negative) Urine Blood 1+ /uL (Negative) H Urine Nitrite Negative (Negative) Urine Bilirubin Negative (Negative) Urine Urobilinogen Normal mg/dL (Negative) Urine Leukocyte Esterase Negative /uL (Negative) Urine RBC 2 /hpf (0 - 3) Urine Microscopic WBC 1 /HPF (0-3) Urine Squamous Epithelial Cells None seen /hpf (<5) Urine Bacteria None seen /hpf (None Seen) Urine Glucose 2+ mg/dL (Normal) H Labs and/or images reviewed: Labs reviewed by me, Image(s) reviewed by me Assessment/Plan Assessment/Plan Subluxation PIP joint left 5th toe status post relocation by ER physician: MRI foot shows no osteomyelitis Laceration lesser toe left foot, sutured Cellulitis left 5th toe : Rocephin, and clindamycin, 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 Rm appreciated, Hypertension History of prostate cancer CT head negative CT chest abdomen pelvis without contrast negative History of atrial fibrillation: Continue Eliquis Hypertension Left wrist pain: X-ray negative for any acute fracture, CT left hand and CT left wrist negative for any fracture, New onset gout uric acid 9.1, start colchicine allopurinol Solu-Medrol Hypercholesterolemia Acute on chronic CHF exacerbation History of skin cancer left upper arm status post surgery and sutured one week ago History of bilateral knee replacement Caregiver Curtis [phone] at bedside Patient does not want any information to be given to his son about his health condition Midline ordered Plan discussed with: Patient My Orders Orders - HANSEL LOPEZ MD Procedure Category Date Status Time Ct L Hand Wo Contrast CT 06/17/24 Resulted 09:27 Ct L Wrist Wo Contrast CT 06/17/24 Resulted 09:27 Hydrocodone-Acet PHA 06/17/24 In Process 10/325mg Tab ([place] 09:30 Date of Service: June 18, 2024 Billing Provider: HANSEL LOPEZ MD Common Visit Codes: [id number] INP/OBS CARE(HIGH) HANSEL LOPEZ MD June 18, 2024 08:50
[2024-06-18 09:00] VITALS: BP 127/58; PULSE 89; RESP 16; TEMP 98.7; O2SAT 96
[2024-06-18] MEDS: methylPREDNISolone SOD SUCC 125 MG/2 ML VL IV SCH (09:50)
[2024-06-18] MEDS: COLCHICINE 0.6 MG CAP PO SCH (09:51)
[2024-06-18] MEDS: ALLOPURINOL 100 MG TAB PO SCH (09:51)
[2024-06-18 13:00] VITALS: BP 141/69; PULSE 83; RESP 18; TEMP 98.7; O2SAT 95
[2024-06-18 17:00] VITALS: BP 99/73; PULSE 75; RESP 18; TEMP 97.8; O2SAT 96
[2024-06-18 21:00] VITALS: BP 127/67; PULSE 86; RESP 18; TEMP 98.6; O2SAT 95
[2024-06-19 01:00] VITALS: BP 122/77; PULSE 78; RESP 18; TEMP 98.4; O2SAT 92
[2024-06-19 05:00] VITALS: BP 121/82; PULSE 73; RESP 18; TEMP 98.3; O2SAT 91
[2024-06-19 08:31] VITALS: BP 126/67; PULSE 98; RESP 18; TEMP 98.4; O2SAT 65
--- NOTE | 2024-06-19 08:38 | DVHPN2 ---
Reviewed: Care Plan, H&P, Labs, Medications, Previous Orders, Radiology Changes from previous H/P or p: No Changes Eyes: No Pain, No Vision change, No Conjunctivae inflammation, No Eyelid inflammation, No Other, No Redness ENT: No Ear pain, No Ear discharge, No Nose pain, No Nose discharge, No Nose congestion, No Mouth pain, No Mouth swelling, No Throat pain, No Throat swelling, No Other Cardiovascular: No Chest Pain, No Palpitations, No Orthopnea, No Paroxysmal Noc. Dyspnea, No Edema, No Lt Headedness, No Other Respiratory: No Cough, No Dry, No Shortness of breath, No SOB with excertion, No Wheezing, No Hemoptysis, No Pleuritic Pain, No Sputum, No Other Genitourinary: No Dysuria, No Frequency, No Incontinence, No Hematuria, No Retention, No Other Musculoskeletal: No other, No neck pain, No shoulder pain, No arm pain, No back pain, No hand pain, No leg pain, No foot pain Skin: No Rash, No Lesions, No Jaundice, No Bruising, No Other Objective Vitals Vital Signs Date Time Temp Pulse Resp B/P (MAP) Pulse Ox O2 Delivery O2 Flow Rate FiO2 06/19/24 08:31 98.4 98 18 126/67 (86) 65 98.4 06/18/24 19:51 Room Air* 0 21 Intake/Output Intake and Output 06/19/24 07:00 Intake Total 1600 ml Output Total 1830 ml Balance -230 ml Intake Oral 1600 ml Output Urine Total 1830 ml Medications Current Medications Medications Dose Ordered Sig/Shilpa Route Start Time Stop Time Status Last Admin Dose Admin Al Hydrox/Mg Hydrox/Simethicone 30 ml Q6HP PRN PO 06/12/24 18:30 Docusate Sodium 100 mg BIDPRN PRN PO 06/12/24 18:30 Acetaminophen 650 mg Q6HP PRN PO 06/12/24 18:30 06/17/24 06:23 650 MG Temazepam 15 mg QHSP PRN PO 06/12/24 18:30 06/15/24 21:47 15 MG Ondansetron HCl 4 mg Q4HP PRN IV 06/12/24 18:30 Ceftriaxone Sodium 50 ml @ 100 mls/hr DAILY IV 06/12/24 18:30 06/18/24 09:52 100 MLS/HR Furosemide 40 mg DAILY IV 06/13/24 10:00 06/18/24 09:50 40 MG Morphine Sulfate 2 mg Q4HPRN PRN IV 06/12/24 21:45 Hold 06/17/24 05:40 2 MG Amino Acid Protein 30 ml DAILY PO 06/14/24 10:00 Ascorbic Acid 500 mg BID PO 06/14/24 10:00 06/18/24 21:13 500 MG Multivitamins/ Minerals 1 tab DAILY PO 06/14/24 10:00 06/18/24 09:51 1 TAB Clindamycin Phosphate 50 ml @ 50 mls/hr Q8HR IV 06/14/24 14:00 06/19/24 05:12 50 MLS/HR Potassium Bicarbonate 50 meq DAILY PO 06/16/24 10:00 06/18/24 09:51 50 MEQ Acetaminophen/ Hydrocodone Bitart 1 tab Q6HP PRN PO 06/17/24 09:30 06/18/24 21:16 1 TAB Colchicine 0.6 mg Q12HR PO 06/18/24 10:00 06/22/24 10:00 06/18/24 21:13 0.6 MG Colchicine 0.6 mg DAILY PO 06/23/24 10:00 Allopurinol 100 mg DAILY PO 06/18/24 10:00 06/18/24 09:51 100 MG Methylprednisolone Sodium Succinate 60 mg BID IV 06/18/24 10:00 06/18/24 09:50 60 MG Laboratory Results Laboratory Tests 06/12/24 13:41 06/15/24 06:34 Urinalysis Test 06/12/24 18:04 Urine Color Yellow (Yellow) Urine Clarity Clear (Clear) Urine pH 5.5 (5.0-9.0) Urine Specific [place] 1.025 (1.001-1.035) Urine Protein 1+ (Negative) H Urine Ketones Negative (Negative) Urine Blood 1+ /uL (Negative) H Urine Nitrite Negative (Negative) Urine Bilirubin Negative (Negative) Urine Urobilinogen Normal mg/dL (Negative) Urine Leukocyte Esterase Negative /uL (Negative) Urine RBC 2 /hpf (0 - 3) Urine Microscopic WBC 1 /HPF (0-3) Urine Squamous Epithelial Cells None seen /hpf (<5) Urine Bacteria None seen /hpf (None Seen) Urine Glucose 2+ mg/dL (Normal) H Labs and/or images reviewed: Labs reviewed by me, Image(s) reviewed by me Assessment/Plan Assessment/Plan Subluxation PIP joint left 5th toe status post relocation by ER physician: MRI foot shows no osteomyelitis Laceration lesser toe left foot, sutured Cellulitis left 5th toe : Rocephin, and clindamycin, consult for disciplinary hearing officer Dr. Rm appreciated, Hypertension History of prostate cancer CT head negative CT chest abdomen pelvis without contrast negative History of atrial fibrillation: Continue Eliquis Hypertension Left wrist pain: X-ray negative for any acute fracture, CT left hand and CT left wrist negative for any fracture, New onset gout uric acid 9.1, start colchicine allopurinol Solu-Medrol Hypercholesterolemia Acute on chronic CHF exacerbation History of skin cancer left upper arm status post surgery and sutured one week ago History of bilateral knee replacement Caregiver Curtis [phone] at bedside Patient does not want any information to be given to his son about his health condition Midline ordered Time spent 70 mts Plan discussed with: Patient My Orders Orders - HANSEL LOPEZ MD Procedure Category Date Status Time Colchicine (Colcrys) PHA 06/18/24 In Process 10:00 Colchicine (Colcrys) PHA 06/23/24 In Process 10:00 Allopurinol Tablet PHA 06/18/24 In Process (Zyloprim Tablet) 10:00 Methylprednisolone PHA 06/18/24 In Process Sod Succ (Solu Medrol 10:00 Date of Service: June 19, 2024 Billing Provider: HANSEL LOPEZ MD Common Visit Codes: [id number] CARE 30-74 MIN HANSEL LOPEZ MD June 19, 2024 08:38
[2024-06-19 12:23] VITALS: BP 142/73; PULSE 80; RESP 18; TEMP 98.6; O2SAT 93
--- NOTE | 2024-06-19 12:39 | DVHDS2 ---
Discharge Summary Date of Admission Jun 12, 2024 at 18:27 Date of Discharge: June 19, 2024 Admitting Diagnosis Laceration left 5th toe Wounds: Left foot infection Labs/Diagnostic Data: Laboratory Results Test 06/17/24 12:37 06/16/24 00:30 06/15/24 06:34 06/12/24 18:04 Uric Acid 9.3 mg/dL (3.7-9.2) SARS-CoV-2 Antigen (Rapid) Negative (NEGATIVE) Sodium Level 135 mmol/L (136-145) Potassium Level 2.8 mmol/L (3.5-5.1) Chloride Level 93 mmol/L (98-107) Carbon Dioxide Level 30 mmol/L (20-31) Anion Gap 12 (5-15) Blood Urea Nitrogen 24 mg/dL (9-23) Creatinine 1.40 mg/dL (0.700-1.30) Glomerular Filtration Rate Calc 51 mL/min (>90) BUN/Creatinine Ratio 17.1 (10.0-20.0) Serum Glucose 111 mg/dL (74-106) Calcium Level 8.8 mg/dL (8.7-10.4) Total Bilirubin 1.7 mg/dL (0.2-1.0) Aspartate Amino Transferase (AST) 22 U/L (13-40) Alanine Aminotransferase (ALT) 24 U/L (7-40) Alkaline Phosphatase 60 U/L (46-116) Total Protein 5.8 g/dL (5.7-8.2) Albumin 4.0 g/dL (3.2-4.8) Urine Color Yellow (Yellow) Urine Clarity Clear (Clear) Urine pH 5.5 (5.0-9.0) Urine Specific [place] 1.025 (1.001-1.035) Urine Protein 1+ (Negative) Urine Ketones Negative (Negative) Urine Blood 1+ /uL (Negative) Urine Nitrite Negative (Negative) Urine Bilirubin Negative (Negative) Urine Urobilinogen Normal mg/dL (Negative) Urine Leukocyte Esterase Negative /uL (Negative) Urine RBC 2 /hpf (0 - 3) Urine Microscopic WBC 1 /HPF (0-3) Urine Squamous Epithelial Cells None seen /hpf (<5) Urine Bacteria None seen /hpf (None Seen) Urine Glucose 2+ mg/dL (Normal) Test 06/12/24 13:41 06/12/24 12:59 White Blood Count 6.9 10^3/uL (4.4-10.8) Red Blood Count 3.56 10^6/uL (4.5-5.90) Hemoglobin 13.4 g/dL (13.5-17.5) Hematocrit 39.2 % (41.0-53.0) Mean Corpuscular Volume 110.1 fL (80.0-100.0) Mean Corpuscular Hemoglobin 37.7 pg (28.0-32.0) Mean Corpuscular Hemoglobin Concent 34.3 g/dL (32.0-36.0) Red Cell Distribution Width 16.6 % (11.8-14.3) Platelet Count 195 10^3/uL (140-450) Mean Platelet Volume 7.1 fL (6.9-10.8) Neutrophils (%) (Auto) 78.1 % (37.0-80.0) Lymphocytes (%) (Auto) 13.0 % (10.0-50.0) Monocytes (%) (Auto) 7.0 % (0.0-12.0) Eosinophils (%) (Auto) 0.7 % (0.0-7.0) Basophils (%) (Auto) 1.2 % (0.0-2.0) Neutrophils # (Auto) 5.4 10 ^3/uL (1.6-8.6) Lymphocytes # (Auto) 0.9 10 ^3/uL (0.4-5.4) Monocytes # (Auto) 0.5 10 ^3/uL (0-1.3) Eosinophils # (Auto) 0 10 ^3/uL (0-0.8) Basophils # (Auto) 0.1 10 ^3/uL (0-0.2) Nucleated Red Blood Cells 0.1 % Hepatitis B Surface Antigen Negative (Negative) Hepatitis B Surface Antibody Negative (Negative) POC Glucose 143 mg/dl (70-106) Other Laboratory Tests 06/15/24 06:34 06/12/24 13:41 Brief Hx & Hospital Course: 78-year-old male with a history of hypertension prostate cancer atrial fibrillation hypercholesterolemia CHF history of skin cancer left upper arm recent surgery history of bilateral knee surgery in the past brought in by caregiver for laceration left 5th toe mental status and confusion. Laceration was sutured in the emergency room patient also had subluxation of the PIP joint of the left 5th toe which was relocated with the ER physician patient has left foot infection by CT and MRI no osteomyelitis started on Rocephin and clindamycin IV seen by podiatry Dr Rm . CT chest abdomen pelvis without contrast negative patient was continued on Eliquis for AFib patient complained of left wrist pain no trauma. CT and x-ray was negative uric acid high 9.1 new diagnosis of gout started on colchicine allopurinol Solu- Medrol with a which he was significant relief Patient has no family members discussed with the caregiver Curtis [phone] who has been his caregiver for the last three years and being discharged to half-way facility for IV antibiotics and physical therapy General condition poor but stable at the time of discharge Consults/Reason for consult Podiatric Dr. 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 Rm appreciated, Hypertension History of prostate cancer CT head negative CT chest abdomen pelvis without contrast negative History of atrial fibrillation: Continue Eliquis Hypertension Left wrist pain: X-ray negative for any acute fracture, CT left hand and CT left wrist negative for any fracture, New onset gout uric acid 9.1, start colchicine allopurinol Solu-Medrol Hypercholesterolemia Acute on chronic CHF exacerbation History of skin cancer left upper arm status post surgery and sutured one week ago History of bilateral knee replacement Caregiver Curtis [phone] at bedside Discharge Disposition: Home Discharge Instruct/Medications Diet: Regular, Cardiac 2g Na,low cholest Activity: Light activity Follow Up/Referral: Follow up with the detention doc Medications: Rocephin 1 g IV daily for two weeks Clindamycin 300 mg IV q.12h for two weeks 39 (Time taken for discharge summary 39 minutes) Discharge Statement: "Patient was advised to return to the ER or call 911 if any headaches, dizziness, shortness of breath, chest pain, abdominal pain, bleeding, fevers, or worsening of medical condition. Patient was counseled about treatment plan, medications, possible side effects, patientverbalized understanding. All questions were answered to the best of my ability. 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 Rm appreciated, Hypertension History of prostate cancer CT head negative CT chest abdomen pelvis without contrast negative History of atrial fibrillation: Continue Eliquis Hypertension Left wrist pain: X-ray negative for any acute fracture, CT left hand and CT left wrist negative for any fracture, New onset gout uric acid 9.1, start colchicine allopurinol Solu-Medrol Hypercholesterolemia Acute on chronic CHF exacerbation History of skin cancer left upper arm status post surgery and sutured one week ago History of bilateral knee replacement Caregiver Curtis [phone] at bedside Date of Service: June 19, 2024 Billing Provider: HANSEL LOPEZ MD Common Visit Codes: [id number] DISCH DAY >30min HANSEL LOPEZ MD June 19, 2024 12:39
[2024-06-19 16:55] VITALS: BP 135/92; PULSE 50; RESP 20; TEMP 98.7; O2SAT 92
[2024-06-19 21:00] VITALS: BP 138/68; PULSE 89; RESP 20; TEMP 98.1; O2SAT 90
[2024-06-20] VITALS (7 sets, daily range): BP systolic 117–141; BP diastolic 61–88; PULSE 66–88; RESP 16–19; TEMP 97.5–98.1; O2SAT 92–98
--- NOTE | 2024-06-20 09:31 | DVHPN2 ---
Reviewed: Care Plan, H&P, Labs, Medications, Previous Orders, Radiology Changes from previous H/P or p: No Changes Eyes: No Pain, No Vision change, No Conjunctivae inflammation, No Eyelid inflammation, No Other, No Redness ENT: No Ear pain, No Ear discharge, No Nose pain, No Nose discharge, No Nose congestion, No Mouth pain, No Mouth swelling, No Throat pain, No Throat swelling, No Other Cardiovascular: No Chest Pain, No Palpitations, No Orthopnea, No Paroxysmal Noc. Dyspnea, No Edema, No Lt Headedness, No Other Respiratory: No Cough, No Dry, No Shortness of breath, No SOB with excertion, No Wheezing, No Hemoptysis, No Pleuritic Pain, No Sputum, No Other Genitourinary: No Dysuria, No Frequency, No Incontinence, No Hematuria, No Retention, No Other Musculoskeletal: No other, No neck pain, No shoulder pain, No arm pain, No back pain, No hand pain, No leg pain, No foot pain Skin: No Rash, No Lesions, No Jaundice, No Bruising, No Other Objective Vitals Vital Signs Date Time Temp Pulse Resp B/P (MAP) Pulse Ox O2 Delivery O2 Flow Rate FiO2 06/20/24 01:00 97.9 88 19 117/76 (90) 95 97.9 06/19/24 20:00 Room Air* 0 21 Intake/Output Intake and Output 06/20/24 07:00 Intake Total 450 ml Output Total 1400 ml Balance -950 ml Intake Oral 400 ml IV Total 50 ml Output Urine Total 1400 ml Medications Current Medications Medications Dose Ordered Sig/Shilpa Route Start Time Stop Time Status Last Admin Dose Admin Al Hydrox/Mg Hydrox/Simethicone 30 ml Q6HP PRN PO 06/12/24 18:30 Docusate Sodium 100 mg BIDPRN PRN PO 06/12/24 18:30 Acetaminophen 650 mg Q6HP PRN PO 06/12/24 18:30 06/20/24 00:16 650 MG Ondansetron HCl 4 mg Q4HP PRN IV 06/12/24 18:30 Ceftriaxone Sodium 50 ml @ 100 mls/hr DAILY IV 06/12/24 18:30 06/19/24 09:44 100 MLS/HR Furosemide 40 mg DAILY IV 06/13/24 10:00 06/19/24 09:45 40 MG Morphine Sulfate 2 mg Q4HPRN PRN IV 06/12/24 21:45 Hold 06/17/24 05:40 2 MG Amino Acid Protein 30 ml DAILY PO 06/14/24 10:00 Ascorbic Acid 500 mg BID PO 06/14/24 10:00 06/19/24 21:46 500 MG Multivitamins/ Minerals 1 tab DAILY PO 06/14/24 10:00 06/19/24 09:50 1 TAB Clindamycin Phosphate 50 ml @ 50 mls/hr Q8HR IV 06/14/24 14:00 06/19/24 21:46 50 MLS/HR Potassium Bicarbonate 50 meq DAILY PO 06/16/24 10:00 06/19/24 09:50 50 MEQ Acetaminophen/ Hydrocodone Bitart 1 tab Q6HP PRN PO 06/17/24 09:30 06/19/24 21:47 1 TAB Colchicine 0.6 mg Q12HR PO 06/18/24 10:00 06/22/24 10:00 06/19/24 22:00 0.6 MG Colchicine 0.6 mg DAILY PO 06/23/24 10:00 Allopurinol 100 mg DAILY PO 06/18/24 10:00 06/19/24 09:50 100 MG Methylprednisolone Sodium Succinate 60 mg BID IV 06/18/24 10:00 06/19/24 21:46 60 MG Laboratory Results Laboratory Tests 06/12/24 13:41 06/15/24 06:34 Urinalysis Test 06/12/24 18:04 Urine Color Yellow (Yellow) Urine Clarity Clear (Clear) Urine pH 5.5 (5.0-9.0) Urine Specific [place] 1.025 (1.001-1.035) Urine Protein 1+ (Negative) H Urine Ketones Negative (Negative) Urine Blood 1+ /uL (Negative) H Urine Nitrite Negative (Negative) Urine Bilirubin Negative (Negative) Urine Urobilinogen Normal mg/dL (Negative) Urine Leukocyte Esterase Negative /uL (Negative) Urine RBC 2 /hpf (0 - 3) Urine Microscopic WBC 1 /HPF (0-3) Urine Squamous Epithelial Cells None seen /hpf (<5) Urine Bacteria None seen /hpf (None Seen) Urine Glucose 2+ mg/dL (Normal) H Labs and/or images reviewed: Labs reviewed by me, Image(s) reviewed by me Assessment/Plan Assessment/Plan Subluxation PIP joint left 5th toe status post relocation by ER physician: MRI foot shows no osteomyelitis Laceration lesser toe left foot, sutured Cellulitis left 5th toe : Rocephin, and clindamycin, consult for cryptographic technician Dr. Rm appreciated, Hypertension History of prostate cancer CT head negative CT chest abdomen pelvis without contrast negative History of atrial fibrillation: Continue Eliquis Hypertension Left wrist pain: X-ray negative for any acute fracture, CT left hand and CT left wrist negative for any fracture, New onset gout uric acid 9.1, start colchicine allopurinol Solu-Medrol Hypercholesterolemia Acute on chronic CHF exacerbation History of skin cancer left upper arm status post surgery and sutured one week ago History of bilateral knee replacement Caregiver Curtis [phone] at bedside Patient does not want any information to be given to his son about his health condition Patient was discharged to assisted facility at 06-19-24 Patient Says he is still feeling weak and would like to go to SNF tomorrow Saturday Plan discussed with: Patient My Orders Orders - HANSEL LOPEZ MD Procedure Category Date Status Time * Licensed Nuclear Operator CONS 06/19/24 Transmitted Consult Discharge DISCHARGE 06/19/24 Transmitted 14:17 Date of Service: June 20, 2024 Billing Provider: HANSEL LOPEZ MD Common Visit Codes: [id number] INP/OBS CARE(HIGH) HANSEL LOPEZ MD June 20, 2024 09:31
[2024-06-21 05:00] VITALS: BP 118/57; PULSE 76; RESP 16; TEMP 97.9; O2SAT 98
[2024-06-21 07:58] VITALS: PULSE 75; RESP 18; O2SAT 98
--- NOTE | 2024-06-21 10:18 | DVHPN2 ---
Reviewed: Care Plan, H&P, Labs, Medications, Previous Orders, Radiology Changes from previous H/P or p: No Changes Eyes: No Pain, No Vision change, No Conjunctivae inflammation, No Eyelid inflammation, No Other, No Redness ENT: No Ear pain, No Ear discharge, No Nose pain, No Nose discharge, No Nose congestion, No Mouth pain, No Mouth swelling, No Throat pain, No Throat swelling, No Other Cardiovascular: No Chest Pain, No Palpitations, No Orthopnea, No Paroxysmal Noc. Dyspnea, No Edema, No Lt Headedness, No Other Respiratory: No Cough, No Dry, No Shortness of breath, No SOB with excertion, No Wheezing, No Hemoptysis, No Pleuritic Pain, No Sputum, No Other Genitourinary: No Dysuria, No Frequency, No Incontinence, No Hematuria, No Retention, No Other Musculoskeletal: No other, No neck pain, No shoulder pain, No arm pain, No back pain, No hand pain, No leg pain, No foot pain Skin: No Rash, No Lesions, No Jaundice, No Bruising, No Other Objective Vitals Vital Signs Date Time Temp Pulse Resp B/P (MAP) Pulse Ox O2 Delivery O2 Flow Rate FiO2 06/21/24 09:05 112/70 06/21/24 07:58 75 18 98 Room Air* 0 21 06/21/24 05:00 97.9 97.9 Intake/Output Intake and Output 06/21/24 07:00 Intake Total 1500 ml Output Total 2300 ml Balance -800 ml Intake Oral 1400 ml IV Total 100 ml Output Urine Total 2300 ml Medications Current Medications Medications Dose Ordered Sig/Shilpa Route Start Time Stop Time Status Last Admin Dose Admin Al Hydrox/Mg Hydrox/Simethicone 30 ml Q6HP PRN PO 06/12/24 18:30 Docusate Sodium 100 mg BIDPRN PRN PO 06/12/24 18:30 Acetaminophen 650 mg Q6HP PRN PO 06/12/24 18:30 06/20/24 00:16 650 MG Ondansetron HCl 4 mg Q4HP PRN IV 06/12/24 18:30 Ceftriaxone Sodium 50 ml @ 100 mls/hr DAILY IV 06/12/24 18:30 06/21/24 09:02 100 MLS/HR Furosemide 40 mg DAILY IV 06/13/24 10:00 06/19/24 09:45 40 MG Morphine Sulfate 2 mg Q4HPRN PRN IV 06/12/24 21:45 Hold 06/17/24 05:40 2 MG Amino Acid Protein 30 ml DAILY PO 06/14/24 10:00 06/21/24 09:12 30 ML Ascorbic Acid 500 mg BID PO 06/14/24 10:00 06/21/24 09:03 500 MG Multivitamins/ Minerals 1 tab DAILY PO 06/14/24 10:00 06/21/24 09:03 1 TAB Clindamycin Phosphate 50 ml @ 50 mls/hr Q8HR IV 06/14/24 14:00 06/21/24 05:07 50 MLS/HR Potassium Bicarbonate 50 meq DAILY PO 06/16/24 10:00 06/21/24 09:04 50 MEQ Acetaminophen/ Hydrocodone Bitart 1 tab Q6HP PRN PO 06/17/24 09:30 06/21/24 05:08 1 TAB Colchicine 0.6 mg Q12HR PO 06/18/24 10:00 06/22/24 10:00 06/21/24 09:03 0.6 MG Colchicine 0.6 mg DAILY PO 06/23/24 10:00 Allopurinol 100 mg DAILY PO 06/18/24 10:00 06/21/24 09:02 100 MG Methylprednisolone Sodium Succinate 60 mg BID IV 06/18/24 10:00 06/20/24 10:27 60 MG Laboratory Results Laboratory Tests 06/12/24 13:41 06/15/24 06:34 Urinalysis Test 06/12/24 18:04 Urine Color Yellow (Yellow) Urine Clarity Clear (Clear) Urine pH 5.5 (5.0-9.0) Urine Specific [place] 1.025 (1.001-1.035) Urine Protein 1+ (Negative) H Urine Ketones Negative (Negative) Urine Blood 1+ /uL (Negative) H Urine Nitrite Negative (Negative) Urine Bilirubin Negative (Negative) Urine Urobilinogen Normal mg/dL (Negative) Urine Leukocyte Esterase Negative /uL (Negative) Urine RBC 2 /hpf (0 - 3) Urine Microscopic WBC 1 /HPF (0-3) Urine Squamous Epithelial Cells None seen /hpf (<5) Urine Bacteria None seen /hpf (None Seen) Urine Glucose 2+ mg/dL (Normal) H Labs and/or images reviewed: Labs reviewed by me, Image(s) reviewed by me Assessment/Plan Assessment/Plan Subluxation PIP joint left 5th toe status post relocation by ER physician: MRI foot shows no osteomyelitis Laceration lesser toe left foot, sutured Cellulitis left 5th toe : Rocephin, and clindamycin, consult for supervisor wet room Dr. Rm appreciated, Hypertension History of prostate cancer CT head negative CT chest abdomen pelvis without contrast negative History of atrial fibrillation: Continue Eliquis Hypertension Left wrist pain: X-ray negative for any acute fracture, CT left hand and CT left wrist negative for any fracture, New onset gout uric acid 9.1, start colchicine allopurinol Solu-Medrol Hypercholesterolemia Acute on chronic CHF exacerbation History of skin cancer left upper arm status post surgery and sutured one week ago History of bilateral knee replacement Patient awaiting [facility] the [facility] Plan discussed with: Patient My Orders Orders - HANSEL LOPEZ MD Procedure Category Date Status Time Discharge DISCHARGE 06/21/24 Transmitted 10:16 Date of Service: June 21, 2024 Billing Provider: HANSEL LOPEZ MD Common Visit Codes: [id number] INP/OBS CARE(HIGH) HANSEL LOPEZ MD June 21, 2024 10:18
[2024-06-21 12:36] VITALS: BP 137/83; PULSE 65; RESP 17; TEMP 97.6; O2SAT 96
[2024-06-21 15:55] VITALS: BP 137/83; PULSE 65; RESP 17; TEMP 97.6; O2SAT 96
[2024-06-21] MEDS ORDERED: ZOLPIDEM TARTRATE 5 MG TAB PO PRN (17:00)
[2024-06-23] MEDS ORDERED: COLCHICINE 0.6 MG CAP PO SCH (10:00)
== END 2024-06-21 17:54 | DRG 602 ==
LOC: ER 12:42 → OVERFLOW 18:27 → EAST 21:20
PROVIDERS: ADMIT Family Medicine; ATTEND Family Medicine
PROC: 0SSQXZZ Reposition Left Toe Phalangeal Joint, External Approach (ICD-10-PCS; principal; 2024-06-12)
PROC: 0HQNXZZ Repair Left Foot Skin, External Approach (ICD-10-PCS; 2024-06-12)
PROC: 05HB33Z Insertion of Infusion Device into Right Basilic Vein, Percutaneous Approach (ICD-10-PCS; 2024-06-12)
PROC: B54MZZA Ultrasonography of Right Upper Extremity Veins, Guidance (ICD-10-PCS; 2024-06-12)
DX: L03.032 Cellulitis of left toe (principal); I50.33 Acute on chronic diastolic (congestive) heart failure; N17.9 Acute kidney failure, unspecified; S93.135A Subluxation of interphalangeal joint of left lesser toe(s), initial encounter; S91.115A Laceration without foreign body of left lesser toe(s) without damage to nail, initial encounter; M10.9 Gout, unspecified; W18.39XA Other fall on same level, initial encounter; Z96.653 Presence of artificial knee joint, bilateral; Z20.822 Contact with and (suspected) exposure to COVID-19; E78.00 Pure hypercholesterolemia, unspecified; I48.91 Unspecified atrial fibrillation; M25.532 Pain in left wrist; I11.0 Hypertensive heart disease with heart failure; Y93.89 Activity, other specified; Y92.89 Other specified places as the place of occurrence of the external cause; Y99.8 Other external cause status; Z85.46 Personal history of malignant neoplasm of prostate; Z79.01 Long term (current) use of anticoagulants; Z79.899 Other long term (current) drug therapy; Z85.828 Personal history of other malignant neoplasm of skin
CPT/HCPCS: 12001; 31500; 36415; 70450; 71250; 73100; 73200; 73620; 73630; 73718; 74176; 80048; 80053; 81001; 82962; 84550; 85025; 86706; 87340; 87426; 90471; 90715; 97110; 97116; 97163; 97530; G0378; J2003; J3490

== ENCOUNTER 2024-12-03 11:20 | Inpatient (IN) | payer MEDICARE, OTHER, MEDICAID ==
[~2024-12-03] VITALS: Ht 177.8 cm; Wt 96.0 kg
[~2024-12-03 11:20] MED LIST: APIX5TAB PO; ATOR-507 PO; DAPA1TAB4 PO; FURO40TA4 PO; METO25TA5 PO; SACU1TAB PO; ZOLP10TA6 PO
--- NOTE | 2024-12-03 11:56 | ED.PDOC ---
Musculoskeletal HPI Comments 79 y/o M, presents to the ED for CC of upper-extremity swelling. Patient states, he developed sudden right hand swelling x2days. Patient reports, being seen at [facility] for SS yesterday (12/02/24) and being relayed to the ED for further care. Patient denies any shortness of breath, chest pain, trauma, injur y, fall, weakness, or numbness. No other symptoms or modifying factors are present at this time. Chief Complaint: Upper Extremity Time Seen by MD: 11:50 Primary Care Provider: UNKNOWN Reviewed Notes: Nurses Notes, Medications, Allergies Allergies: Coded Allergies: NO KNOWN ALLERGIES (Unverified , 06/12/24) Home Meds Reported Medications Zolpidem Tartrate (Zolpidem Tartrate) 10 Mg Tab, 1 TAB PO QPM, #30 TAB 2 Refills 06/14/24 Sacubitril-Valsartan (Entresto 24-26 mg) 1 Tab Tab, 1 TAB PO BID, TAB 06/14/24 Apixaban Base (ELIQUIS) 5 Mg Tab, 5 MG PO BID, TAB 06/14/24 Furosemide (Furosemide) 40 Mg Tab, 40 MG PO DAILY for 30 Days 06/14/24 Atorvastatin Calcium (Lipitor) 40 Mg Tab, 40 TAB PO QPM, #90 TAB 1 Refill 06/14/24 Metoprolol Tartrate (Metoprolol Tartrate) 25 Mg Tab, 25 MG PO DAILY for 30 Days, MG 06/14/24 Dapagliflozin Propanediol (Farxiga) 10 Mg Tab, 10 MG PO DAILY, TAB 06/14/24 Information Source: Patient Mode of Arrival: Ambulatory Location: Right Extremity Location: Hand Timing: Days Prehospital treatment: None Severity: Moderate Able to Move Extremity: Yes Pain: Moderate Mechanism: None Circumstances: Spontaneous Onset of Symptoms: Spontaneous Symptoms: Swelling, Pain DVT Risk Factors: NONE Associated signs and symptoms: Swelling Past Medical History PAST MEDICAL HISTORY: Cancer, HTN Surgical History: Denies all surgeries Family History Family History: Reviewed,noncontributory to illness Social History Smoker: Non-Smoker Alcohol: Denies ETOH Use Drugs: Denies Drug Use Lives In: Home Constitutional: denies: chills, diaphoresis, fatigue, fever, malaise, sweats, weakness, others EENTM: denies: blurred vision, double vision, ear bleeding, ear discharge, ear drainage, ear pain, ear ringing, eye pain, eye redness, hearing loss, mouth pain, mouth swelling, nasal discharge, nose bleeding, nose congestion, nose pain, photophobia, tearing, throat pain, throat swelling, voice changes, others Respiratory: denies: cough, hemoptysis, orthopnea, SOB at rest, shortness of breath, SOB with excertion, stridor, wheezing, others Cardiovascular: denies: chest pain, dizzy spells, diaphoresis, Dyspnea on exertion, edema, irregular heart beat, left arm pain, lightheadedness, palpitations, PND, syncope, others Gastrointestinal: denies: abdomen distended, abdominal pain, blood streaked bowels, constipated, diarrhea, dysphagia, difficulty swallowing, hematemesis, melena, nausea, poor appetite, poor fluid intake, rectal bleeding, rectal pain, vomiting, others Genitourinary: denies: burning, dysuria, flank pain, frequency, hematuria, incontinence, penile discharge, penile sore, pain, testicle pain, testicle swelling, urgency, others Neurological: denies: dizziness, fainting, headache, left sided numbness, left sided weakness, numbness, paresthesia, pre-existing deficit, right sided numbness, right sided weakness, seizure, speech problems, tingling, tremors, weakness, others Musculoskeletal: reports: others (right hand swelling); denies: back pain, gout, joint pain, joint swelling, muscle pain, muscle stiffness, neck pain Integumetry: denies: bruises, change in color, change in hair/nails, dryness, laceration, lesions, lumps, rash, wounds, others Allergic/Immunocompromised: denies: Difficulty Healing, Frequent Infections, Hives, Itching, others Hematologic/Lymphatic: denies: anemia, blood clots, easy bleeding, easy bruising, swollen glands, others Endocrine: denies: excessive hunger, excessive sweating, excessive thirst, excessive urination, flushing, intolerance to cold, intolerance to heat, unexplained weight gain, unexplained weight loss, others Psychiatric: denies: anxiety, bipolar disorder, depression, hopeless, panic d isorder, schizophrenia, sleepless, suicidal, others All Other Systems: Reviewed and Negative Physical Exam General Appearance: Moderate Distress HEENT: Normal ENT Inspection, Pharynx Normal, TMs Normal Neck: Full Range of Motion, Non-Tender, Normal, Normal Inspection Respiratory: Chest Non-Tender, Lungs Clear, No Accessory Muscle Use, No Respiratory Distress, Normal Breath Sounds Cardiovascular: No Edema, No JVD, No Murmur, No Gallop, Normal Peripheral Pulses, Regular Rate/Rhythm Breast Exam: Deferred Gastrointestinal: No Organomegaly, Non Tender, No Pulsatile Mass, Normal Bowel Sounds, Soft Genitalia: Deferred Pelvic: Deferred Rectal: Deferred Extremities: Swelling (Right hand) Musculoskeletal : Apperance: Normal Neurologic: Alert, manufacturing recruiter II-XII nml as Tested, No Motor Deficits, Normal Affect, Normal Mood, No Sensory Deficits Cerebellar Function: Normal Reflexes: Normal Skin: Dry, Normal Color, Warm Peripheral Pulses: 3+ Radial (R), 3+ Radial (L) Lymphatic: No Adenopathy Was a procedure done? Was a procedure done?: No Differential Diagnosis EXT Differential Diagnosis: Deep Vein Thrombosis, Gout X-Ray, Labs, Meds, VS Vital Signs Date Time Temp Pulse Resp B/P (MAP) Pulse Ox O2 Delivery O2 Flow Rate FiO2 12/03/24 14:17 80 18 96 Room Air 12/03/24 14:17 97.6 80 18 131/93 (106) 96 97.6 12/03/24 11:21 99.3 86 18 137/86 96 99.3 [place] [address] Ph: [phone] DIAGNOSTIC IMAGING Diagnostic Imaging Report : [id number] Signed PATIENT: SAROJ AMBROSIOCCT: [id number] UNIT: [id number] : 1945 LOC: ER ROOM / BED: / AGE / SEX: 79 / M ADM STATUS: REG ER SERVICE 1150 ORDERING PHYSICIAN: GENIA LAROSE MD PROCEDURE(s): RUDVT - Rt Upper DVT REASON: dvt ORDER NUMBER(s): [id number], ACCESSION NUMBER(s): [id number] RIGHT lower extremity venous duplex Clinical History: dvt Comparison: None Technique: Duplex Doppler evaluation of the deep venous systems of RIGHT lower extremities from the common femoral veins to the popliteal veins including color Doppler and spectral/pulsed waveform analysis was performed. Findings: RIGHT SIDE: The common femoral vein demonstrates appropriate compressibility and waveform variability. There is compressibility/patency of the great saphenous vein at the proximal thigh. The femoral vein demonstrates appropriate compressibility and waveform variability. The deep femoral vein demonstrates appropriate compressibility and waveform variability. The popliteal vein demonstrates appropriate compressibility and waveform variability. There is normal compressibility at the tibioperoneal trunk. Impression: 1. No right femoropopliteal venous thrombosis. ATED BY: PETER MCPHERSON Jr., DO DICTATED DATE/TIME: 12/03/244 SIGNED BY: PETER MCPHERSON Jr., SIGNED DATE/TIME: 12/03/241243 CC: Patient alert. Came in because of right hand swelling. DVT study within normal limits. Vitals stable. Answering questions. Was given aspirin. Echocardiogram. Cardiac workup. Continue monitoring. Time of 1ST Reevaluation: 12:20 Reevaluation 1ST: Unchanged Patient Education/Counseling: Diagnosis, Treatment Family Education/Counseling: Diagnosis, Treatment Departure 1 Departure Time of Disposition: 16:31 Impression: Primary Impression: Cellulitis Qualified Codes: L03.113 - Cellulitis of right upper limb Disposition: 09 ADMITTED INPATIENT Admit to: Med Surg Condition: Guarded Critical Care Note Critical Care Time?: No Stability Stability form required: No Heart Score Heart Score: Heart Score Response (Comments) Value History Slightly Suspicious 0 EKG Normal 0 Age >65 2 Risk Factors >3 or Hx ASHD 2 Troponin Normal limit 0 Total 4 I personally scribed for GENIA LAROSE MD ([email or web address]) on 12/03/24 at 11:56. Electronically submitted by Carine Walsh ([email or web address]). I personally scribed for GENIA LAROSE MD ([email or web address]) on 12/03/24 at 13:27. Electronically submitted by Bill Stallworth ([email or web address]). GENIA LAROSE MD Dec 03, 2024 11:56
--- NOTE | 2024-12-03 12:47 | DVH ---
RIGHT lower extremity venous duplex Clinical History: dvt Comparison: None Technique: Duplex Doppler evaluation of the deep venous systems of RIGHT lower extremities from the common femor al veins to the popliteal veins including color Doppler and spectral/pulsed waveform analysis was per formed. Findings: RIGHT SIDE: The common femoral vein demonstrates appropriate compressibility and waveform variability. There is compressibility/patency of the great saphenous vein at the proximal thigh. The femoral vein demonstrates appropriate compressibility and waveform variability. The deep femoral vein demonstrates appropriate compressibility and waveform variability. The popliteal vein demonstrates appropriate compressibility and waveform variability. There is normal compressibility at the tibioperoneal trunk. Impression: 1. No right femoropopliteal venous thrombosis.
[2024-12-03 16:41] LABS: Hematocrit 44.1 % (41.0-53.0); Hemoglobin 14.9 g/dL (13.5-17.5); Mean Corpuscular Hemoglobin 37.2 pg (28.0-32.0); Mean Corpuscular Volume 110.1 fL (80.0-100.0); Nucleated Red Blood Cells % 0.0 %
--- NOTE | 2024-12-03 16:51 | DVH ---
CHEST RADIOGRAPH Indication: sob Technique: Single frontal view of the chest was obtained Comparison: None FINDINGS: Lines and Tubes: None Lungs: No focal consolidation. Lateral lower lung zone Linear densities. Pleura: No effusion. No pneumothorax. Cardiomediastinal contours: Mild cardiomegaly Bones: No acute osseous abnormality. IMPRESSION: Bilateral lower lung zone linear atelectasis. Otherwise, No acute cardiopulmonary disease.
[2024-12-03 17:13] LABS: Potassium 4.8 mmol/L (3.5-5.1)
[2024-12-03 17:14] LABS: Anion Gap 14 (5-15); Calcium 10.1 mg/dL (8.7-10.4); Carbon Dioxide 26 mmol/L (20-31); Chloride 93 mmol/L (98-107); Sodium 133 mmol/L (136-145)
[2024-12-03 17:19] LABS: BUN/Creatinine Ratio 17.0 (10.0-20.0); Glucose 106 mg/dL (74-106)
[2024-12-03 17:20] LABS: Blood Urea Nitrogen 26 mg/dL (9-23)
[2024-12-03 18:44] VITALS: PULSE 96; RESP 18; O2SAT 96
[2024-12-03] MEDS: SODIUM CHLORIDE 0.9% 1,000 ML IV ONE (18:47)
[2024-12-03] MEDS: ONDANSETRON HCL 4 MG/2 ML VIAL IV ONE (18:47)
[2024-12-03] MEDS: HYDROmorphone HCL 2 MG/ML VL/or syr IV ONE (18:48)
[2024-12-03] MEDS: CLINDAMYCIN 300MG IV 50 ML IV ONE (20:11)
--- NOTE | 2024-12-03 20:56 | DVHHPRES ---
History of Present Illness Resident Creating Document: MAURA CANTRELL RESIDENT History of Present Illness This is a 79-year-old male with past medical history of skin cancer, atrial fibrillation, hypertension, HLD, congestive heart failure, presented to the ER with chief complain of upper extremity swelling. Patient reported that the swelling started 2 days back in his right hand, progressively worsening, associated with pain which is described as crushing, 10/10, radiating up to the elbow. Patient denies any trauma, insect bite, fever, chills. Patient reports being seen at the [facility] urgent care, where a CT scan was done & the patient was referred to the ER for care. Previous hospitalization: For cellulitis Discharge with Rocephin and clindamycin PMHx: Skin cancer s/p resection, atrial fibrillation, hypertension, HLD, co ngestive heart failure PSHx: Bilateral knee replacement surgery. Skin cancer resection Social history: Quit smoking 30 years ago, 20 pack per year smoking history. Drinks 2 glasses of alcohol every day. Denies recreational drug use. Lives in a house alone, full code, next to kin is Curtis Zambrano Home medication: Farxiga, metoprolol, furosemide, Entresto, Eliquis, zolpidem, tramadol Allergic history: No known allergies Patient was examined at bedside today. Tachycardia on arrival. Labs show borderline low-sodium, elevated creatinine. CXR shows bilateral lower lung atelectasis. Patient is admitted for further evaluation and management. Review of Systems Review of Systems ROS: Constitutional: Denies weight loss, fever and chills. HEENT: Denies changes in vision and hearing. Respiratory: Denies shortness of breath and cough Cardiovascular: Denies chest discomfort or palpitations GI: Denies abdominal pain, nausea, vomiting and diarrhea. : Denies dysuria and urinary frequency. Musculoskeletal: Pain and swelling of right hand Skin: Denies rash and pruritus. Neurological: Denies dizziness, headache, vision or hearing problems Allergies: Coded Allergies: NO KNOWN ALLERGIES (Unverified , 06/12/24) Exam Vital Signs Vital Signs Date Time Temp Pulse Resp B/P (MAP) Pulse Ox O2 Delivery O2 Flow Rate FiO2 12/03/24 18:48 96 18 158/91 12/03/24 18:44 98.4 96 98.4 12/03/24 18:44 Room Air* 0 21 Exam General: Patient alert and oriented in person, place and time. Patient following commands. HEENT: Normocephalic, atraumatic, moist mucous membranes Respiratory/pulmonary: Distant breath sounds Cardiovascular: Tachycardia. Normal heart sounds S1 and S2 with no associated murmurs Abdomen: Abdomen nondistended, there is no pain to palpation in any of the abdominal quadrants, no palpable masses. Extremities: Right hand swelling with erythema, warm and tender to touch. Grade 2 bilateral pitting edema in lower extremities. Peripheral Pulses: 3+ Radial (R). 3+ Radial (L). 3+ Dorsalis pedis (R). 3+ Dorsalis pedis(L) Skin: No rashes or pruritus, there is no sacral edema present at this time. Neurological: Intact cranial nerves with no focal neurologic deficits Labs/Xrays Labs Test 12/03/24 16:32 Range/Units White Blood Count 10.4 4.4-10.8 10^3/uL Red Blood Count 4.01 L 4.5-5.90 10^6/uL Hemoglobin 14.9 13.5-17.5 g/dL Hematocrit 44.1 41.0-53.0 % Mean Corpuscular Volume 110.1 H 80.0-100.0 fL Mean Corpuscular Hemoglobin 37.2 H 28.0-32.0 pg Mean Corpuscular Hemoglobin Concent 33.8 32.0-36.0 g/dL Red Cell Distribution Width 14.7 H 11.8-14.3 % Platelet Count 186 140-450 10^3/uL Mean Platelet Volume 8.0 6.9-10.8 fL Neutrophils (%) (Auto) 78.1 37.0-80.0 % Lymphocytes (%) (Auto) 11.3 10.0-50.0 % Monocytes (%) (Auto) 9.7 0.0-12.0 % Eosinophils (%) (Auto) 0.3 0.0-7.0 % Basophils (%) (Auto) 0.6 0.0-2.0 % Neutrophils # (Auto) 8.1 1.6-8.6 10 ^3/uL Lymphocytes # (Auto) 1.2 0.4-5.4 10 ^3/uL Monocytes # (Auto) 1.0 0-1.3 10 ^3/uL Eosinophils # (Auto) 0 0-0.8 10 ^3/uL Basophils # (Auto) 0.1 0-0.2 10 ^3/uL Nucleated Red Blood Cells 0.0 % Sodium Level 133 L 136-145 mmol/L Potassium Level 4.8 3.5-5.1 mmol/L Chloride Level 93 L 98-107 mmol/L Carbon Dioxide Level 26 20-31 mmol/L Anion Gap 14 5-15 Blood Urea Nitrogen 26 H 9-23 mg/dL Creatinine 1.53 H 0.700-1.30 mg/dL Glomerular Filtration Rate Calc 46 >90 mL/min BUN/Creatinine Ratio 17.0 10.0-20.0 Serum Glucose 106 74-106 mg/dL Calcium Level 10.1 8.7-10.4 mg/dL Troponin I High Sensitivity 24 </=54 ng/L SEPSIS Sepsis Screen Date sepsis recognized/suspect: Dec 03, 2024 Time Sepsis recognized/suspect: 1843 Recent Procedure: No On Antibiotic Therapy: No Respiratory Rate >20: No Heart Rate >90: Yes Temp<36 C (96.8 F) or >38.3 C: No SBP <90 or MAP <65 mmHG: No New Acute Mental Status Change: No Is the patient on CPAP, BIPAP,: No Physician Orders Chest Portable (12/03/24 16:21) Urinalysis (12/03/24 16:21) Tramadol Hcl (Ultram) (12/03/24 20:45) Vital Signs Date Time Temp Pulse Resp B/P (MAP) Pulse Ox O2 Delivery O2 Flow Rate FiO2 12/03/24 18:48 96 18 158/91 12/03/24 18:44 98.4 96 18 158/91 (113) 96 98.4 12/03/24 18:44 96 18 96 Room Air* 0 21 12/03/24 14:17 80 18 96 Room Air 12/03/24 14:17 97.6 80 18 131/93 (106) 96 97.6 Laboratory Tests Test 12/03/24 16:32 White Blood Count 10.4 10^3/uL (4.4-10.8) Medications Medications Dose Ordered Sig/Shilpa Route Start Time Stop Time Status Last Admin Dose Admin Ceftriaxone Sodium 50 ml @ 100 mls/hr ONCE ONCE IV 12/03/24 16:45 12/03/24 17:14 DC 12/03/24 18:47 100 MLS/HR Clindamycin Phosphate 50 ml @ 50 mls/hr ONCE ONCE IV 12/03/24 16:45 12/03/24 17:44 DC 12/03/24 20:11 50 MLS/HR Hydromorphone HCl 1 mg ONCE ONCE IV 12/03/24 18:45 12/03/24 18:46 DC 12/03/24 18:48 1 MG Ondansetron HCl 4 mg ONCE ONCE IV 12/03/24 18:45 12/03/24 18:46 DC 12/03/24 18:47 4 MG Sodium Chloride 1,000 ml @ 1,000 mls/hr Q1H ONCE IV 12/03/24 16:30 12/03/24 17:29 DC 12/03/24 18:47 1,000 MLS/HR Assessment/Plan Assessment/Plan Sepsis due to cellulitis Lactic acidosis, leukocytosis Blood culture ordered IV vancomycin started IV NS bolus received in the ER and maintenance ordered (restricted fluid administration in context of history of congestive heart failure) DVT ruled out Doppler ultrasound negative for upper extremity DVT. Paroxysmal Atrial fibrillation Apixaban 5 mg b.i.d. On therapeutic Enoxaparin during admission Systolic versus diastolic congestive heart failure [facility] ordered Hyperlipidemia Atorvastatin 40 q.p.m. Hypertension Metoprolol 20 mg daily Insomnia Zolpidem 10 History of skin cancer, unspecified History of bilateral knee replacement Cannabinoid use Patient counseled on bedside for more than 12 minutes for cessation of cannabis DIET: Cardiac DVT PROPHYLAXIS: Lovenox GI PROPHYLAXIS: Protonix CODE STATUS: Goals of care discussed with patient at bedside for more than 38 minutes. Full code DISPOSITION: Telemetry Patient's status and plan discussed with the patient. Case discussed with Dr. Rivero. Plan discussed with: Patient, Other (Nurses) Date of Service: Dec 03, 2024 Billing Provider: FRANKLIN RIVERO MD Common Visit Codes: [id number] INP/OBS CARE (HIGH) Secondary Visit Codes: [id number] CARE PLAN 30 MINUTES MAURA CANTRELL RESIDENT Dec 03, 2024 20:56 DILSHAD MALIK RESIDENT Dec 04, 2024 05:49
[2024-12-03 21:23] LABS: Alanine Aminotransferase 22.0 U/L (7-40); Alkaline Phosphatase 71.0 U/L (46-116); Cholesterol 157.0 mg/dL (< 200); Magnesium 2.1 mg/dL (1.6-2.6); Total Protein 7.9 g/dL (5.7-8.2); Triglycerides 100.0 mg/dL (< 150)
[2024-12-03 21:46] LABS: Albumin 5.0 g/dL (3.2-4.8); Bilirubin, Direct 0.6 mg/dL (<0.3); Bilirubin, Total 1.5 mg/dL (0.2-1.0); HDL Cholesterol 61.0 mg/dL (40-59)
[2024-12-03 21:56] LABS: Lipase 34.0 U/L (12-53)
[2024-12-03 22:28] LABS: Lactic Acid w/Reflex 2.4 mmol/L (0.4-2.0)
[2024-12-03 22:36] LABS: INR 0.97 (0.9-1.15); Partial Thromboplastin Time 33.0 SEC (24.5-34.5); Prothrombin Time 10.3 sec (9.3-11.8)
[2024-12-03] MEDS ORDERED: ENOXAPARIN SOD 40 MG/0.4 ML SYRINGE SC SCH (23:30)
[2024-12-03] MEDS ORDERED: ONDANSETRON HCL 4 MG/2 ML VIAL IV PRN (23:30)
[2024-12-03 23:33] LABS: Amphetamine Screen, Urine Neg (NEGATIVE); Barbiturate Scree,Urine Neg (NEGATIVE); Benzodiazephine Screen, Urine Neg (NEGATIVE); Cocaine Screen, Urine Neg (NEGATIVE); Opiate Scree,Urine Neg (NEGATIVE)
[2024-12-03 23:34] LABS: Cannabinoid Screen, Urine Pos (NEGATIVE); Phencyclidine Screen, Urine Neg (NEGATIVE)
[2024-12-03 23:35] LABS: Urine Protein, UAD 2+ (Negative)
[2024-12-04] VITALS (8 sets, daily range): BP systolic 91–138; BP diastolic 47–84; PULSE 64–89; RESP 16–19; TEMP 97.6–98.7; O2SAT 92–95
[2024-12-04] MEDS ORDERED: HYDROmorphone HCL 2 MG/ML VL/or syr IV PRN (00:15)
[2024-12-04 00:49] LABS: Hematocrit 42.5 % (41.0-53.0); Hemoglobin 14.4 g/dL (13.5-17.5); Mean Corpuscular Hemoglobin 37.4 pg (28.0-32.0); Mean Corpuscular Volume 110.9 fL (80.0-100.0); Nucleated Red Blood Cells % 0.3 %
[2024-12-04] MEDS: ENOXAPARIN SOD 100 MG/1 ML SYRINGE SC ONE (00:55)
[2024-12-04] MEDS: HYDROcodone-ACET 5/325MG TAB PO PRN (01:00)
[2024-12-04] MEDS: VANCOMYCIN 1GM/250ML KIT 250 ML IV ONE (01:15)
[2024-12-04] MEDS ORDERED: VANCOMYCIN PER PHARMACY 0 MG IV SCH (01:15)
[2024-12-04] MEDS: METOPROLOL SUCCINATE XL 50 MG TAB PO ONE (03:42)
[2024-12-04] MEDS: PANTOPRAZOLE 40 MG/10 ML VIAL INJ IV ONE (03:48)
[2024-12-04] MEDS: KETOROLAC TROMETH 30 MG/ML 1ML VIAL IV ONE (03:49)
[2024-12-04] MEDS ORDERED: ZOLPIDEM TARTRATE 5 MG TAB PO PRN (04:15)
[2024-12-04] MEDS: SODIUM CHLORIDE 0.9% 1,000 ML IV SCH (04:45)
[2024-12-04 07:31] LABS: Hematocrit 37.7 % (41.0-53.0); Hemoglobin 12.8 g/dL (13.5-17.5); Mean Corpuscular Hemoglobin 37.3 pg (28.0-32.0); Mean Corpuscular Volume 110.0 fL (80.0-100.0); Nucleated Red Blood Cells % 0.0 %
[2024-12-04 07:50] LABS: Alanine Aminotransferase 18 U/L (7-40); Alkaline Phosphatase 56 U/L (46-116); Anion Gap 12 (5-15); BUN/Creatinine Ratio 13.0 (10.0-20.0); Blood Urea Nitrogen 22 mg/dL (9-23); Carbon Dioxide 25 mmol/L (20-31); Glucose 103 mg/dL (74-106); Potassium 4.1 mmol/L (3.5-5.1); Total Protein 6.2 g/dL (5.7-8.2)
[2024-12-04 07:51] LABS: Albumin 3.9 g/dL (3.2-4.8); Bilirubin, Total 1.1 mg/dL (0.2-1.0)
[2024-12-04 07:52] LABS: Calcium 9.4 mg/dL (8.7-10.4)
[2024-12-04 07:54] LABS: Chloride 95 mmol/L (98-107); Sodium 132 mmol/L (136-145)
[2024-12-04] MEDS: THIAMINE 100mg/ml INJ (200mg/2ml VIAL) IV ONE (10:00)
[2024-12-04] MEDS: FOLIC ACID 1 MG TAB PO SCH (10:26)
[2024-12-04] MEDS: EMPAGLIFLOZIN 10 MG TAB PO SCH (10:26)
[2024-12-04] MEDS: PANTOPRAZOLE 40 MG/10 ML VIAL INJ IV SCH (10:26)
[2024-12-04] MEDS: SACUBITRIL-VALSARTAN 24mg/26mg TAB PO SCH (10:26)
[2024-12-04] MEDS: ENOXAPARIN SOD 100 MG/1 ML SYRINGE SC SCH (10:26)
[2024-12-04] MEDS: THIAMINE HCL 100 MG TAB PO SCH (10:26)
[2024-12-04] MEDS: METOPROLOL SUCCINATE XL 50 MG TAB PO SCH (10:28)
--- NOTE | 2024-12-04 10:53 | DVH ---
CLINICAL INDICATION: wrist pain and sweeling TECHNIQUE: 2 radiographic views of the right wrist were obtained. Comparison: CT CT L WRIST WO CONTRAST on DOS: 06/17/24, XY L WRIST 2 VIEW XRAY on DOS: 06/16/24 FINDINGS/IMPRESSION: There is no evidence of acute fracture or dislocation. 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
[2024-12-04] MEDS: FOLIC ACID 1 MG in D5W 5% 50 ML INJ ONE (11:24)
--- NOTE | 2024-12-04 14:13 | DVHPNRES ---
Progress Note Date Seen: Dec 04, 2024 Resident Creating Document: KAREEM IGNACIO RESIDENT Medical Necessity Reason Pt with a Central, PICC or Fol: No Subjective Review of Systems This is a 79-year-old male with past medical history of skin cancer, atrial fibrillation, hypertension, HLD, congestive heart failure, presented to the ER with chief complain of upper extremity swelling. Patient reported that the swelling started 4 days back on Saturday in his right hand, progressively worsening, associated with pain which is described as crushing, 10/10, radiating up to the elbow. Patient denies any trauma, insect bite, fever, chills. Patient reports being seen at the [facility] urgent care, where a CT scan was done & the patient was referred to the ER for care. Lab workup revealed WBC 11.3, hemoglobin 12.8, MCV 110, sodium 132, serum creatinine 1.53, BUN 26, GFR 46, lactic acid 2.4, serum uric acid 11.3, serum bilirubin 1.5, UDS positive for cannabinoids. Serum alcohol> 3, urinalysis negative for UTI. Doppler study of the right upper extremity negative for DVT, chest g-[id number]-[id number] lower lung zone linear atelectasis. 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 Previous hospitalization: For cellulitis Discharge with Rocephin and clindamycin PMHx: Skin cancer s/p resection, atrial fibrillation, hypertension, HLD, congestive heart failure PSHx: Bilateral knee replacement surgery. Skin cancer resection Social history: Quit smoking 30 years ago, 20 pack per year smoking history. Drinks 2 glasses of alcohol every day. Denies recreational drug use. Lives in a house alone, full code, next to kin is Curtis Zambrano Home medication: Farxiga, metoprolol, furosemide, Entresto, Eliquis, zolpidem, tramadol Allergic history: No known allergies Patient was seen today at bedside, labs and chart reviewed. Patient reports ongoing right wrist pain, erythematous, swollen, tender to touch right forearm and wrist. Ordered CT scan of the right wrist without contrast. Ordered methylprednisolone for 1 time please plan is to continue with the oral prednisolone 40 mg p.o. daily from tomorrow for suspected gouty arthritis. Plan is to rule out any septic arthritis. Spoke to patient's caregiver Curtis [phone]. Discussed patient's current medical condition and answered her questions with the patient's approval. Objective vital signs Vital Sign Date Time Temp Pulse Resp B/P (MAP) Pulse Ox O2 Delivery O2 Flow Rate FiO2 12/04/24 13:00 98.0 64 16 91/59 (70) 92 98.0 12/04/24 08:00 Room Air* 0 21 Total Intake and Output 12/03/24 12/03/24 12/04/24 15:00 23:00 07:00 Intake Total 0 ml Balance 0 ml medications Current Medications Medications Dose Ordered Sig/Shilpa Route Start Time Stop Time Status Last Admin Dose Admin Acetaminophen/ Hydrocodone Bitart 1 tab Q4HP PRN PO 12/03/24 23:30 12/04/24 01:00 1 TAB Ondansetron HCl 4 mg Q4HP PRN IV 12/03/24 23:30 Metoprolol Succinate 25 mg DAILY PO 12/04/24 10:00 12/04/24 10:28 25 MG Sacubitril/ Valsartan 1 tab BID PO 12/04/24 10:00 12/04/24 10:26 1 TAB Enoxaparin Sodium 100 mg Q12HR SC 12/04/24 10:00 12/04/24 10:26 100 MG Hydromorphone HCl 0.25 mg Q4HPRN PRN IV 12/04/24 00:15 Pantoprazole Sodium 40 mg DAILY IV 12/04/24 10:00 12/04/24 10:26 40 MG Empaglifozin 10 mg DAILY PO 12/04/24 10:00 12/04/24 10:26 10 MG Vancomycin HCl 0 ml @ 0 mls/hr UD IV 12/04/24 01:15 Zolpidem Tartrate 10 mg HSPRN PRN PO 12/04/24 04:15 Sodium Chloride 1,000 ml @ 100 mls/hr Q10H IV 12/04/24 04:45 Thiamine HCl 100 mg DAILY PO 12/04/24 10:00 12/04/24 10:26 100 MG Folic Acid 1 mg DAILY PO 12/04/24 10:00 12/04/24 10:26 1 MG Vancomycin HCl 250 ml @ 250 mls/hr DAILY@0100 IV 12/05/24 01:00 Examination -General examination- awake, alert, oriented HEENT- PEERLA, no acute nasal discharge Cardiovascular- S1-S2 audible, RRR; no murmur Respiratory- CTAB, no wheeze or rhonchi Gastrointestinal-nontender, bowel sound+. Nondistended Musculoskeletal-no acute joint swelling or tenderness or redness extremity- bilateral leg edema++, right forearm and wrist rule swollen, red, tender to touch. Especially right wrist Neurological- cranial nerves intact, no acute dysarthria or dysphagia Psychiatry- denies depression or SI or HI Skin- no acute rash or purpura laboratory and microbiology Laboratory Tests 12/04/24 04:55 Test 12/04/24 04:55 Range/Units Serum Glucose 103 74-106 mg/dL Labs and/or images reviewed: Labs reviewed by me, Image(s) reviewed by me Problem List/Assessment/Plan Problem List/Assessment/Plan Assessment and plan #Sepsis due to cellulitis right forearm # ?gout flare up # Lactic acidosis, leukocytosis -Blood culture pending report -DVT ruled out, Doppler ultrasound negative for upper extremity DVT. -continue vancomycin as prescribed - Ordered CT scan of the right wrist without contrast for further evaluation and care -Ordered methylprednisolone IV -plan is to switch to the oral prednisolone 40 mg p.o. daily from tomorrow for suspected gouty arthritis. - Plan is to rule out any septic arthritis. #Paroxysmal Atrial fibrillation -continue Lovenox as prescribed -pending echo 2D report # PAMELA on CKD likely due to VMN -ordered IV fluid, reassess tomorrow -avoid dehydration and nephrotoxic drugs -monitor renal function #Systolic/ diastolic congestive heart failure, no acute exacerbation clinical -continue Jardiance 10 mg p.o. daily -continue Entresto 24-26 mg p.o. b.i.d. -continue metoprolol 25 mg p.o. daily -pending echo 2D report #Hyperlipidemia -Atorvastatin 40 q.p.m. #Hypertension -continue Entresto 24-26 mg p.o. b.i.d. -continue metoprolol 25 mg p.o. daily #Insomnia -Zolpidem 10 mg daily #History of skin cancer, unspecified #History of bilateral knee replacement, hip surgery # history of BPH #Marijuana use disorder Patient counseled for 16 minutes for cessation of cannabis -ordered CT scan of the right wrist without contrast, ordered 1 time methylprednisolone IV. Plan is to continue with the prednisolone 40 mg p.o. daily from tomorrow for suspected gouty arthritis. Plan is to rule out suspected septic arthritis. Pending echo 2D report Goals of care discussed for 20 minutes, Code status full code PUD prophylaxis: Pantoprazole DVT prophylaxis: Lovenox Plan discussed with the resident team, , nursing staff, patient Plan discussed with: Patient, Other (RN) My Orders My Orders Orders - KAREEM IGNACIO RESIDENT Procedure Category Date Status Time Folate (Folic Acid) LAB 12/05/24 Verified 04:00 Thiamine Tab PHA 12/04/24 In Process 10:00 Folic Acid Tablet PHA 12/04/24 In Process 10:00 R Wrist 2 View Xray XY 12/04/24 Resulted 09:49 Date of Service: Dec 04, 2024 Billing Provider: CANDIE MCCANN MD Common Visit Codes: [id number] INP/OBS CARE(HIGH) Secondary Visit Codes: [id number] CHNG SMOKING >10MIN (Counseled for 16 minutes on marijuana use cessation), [id number] CARE PLAN 30 MINUTES (20 minutes) Addendum Addendum Addendum I was physically present for the giron portions of the service provided to patient by THE RESIDENT. I have reviewed the documentation, discussed the case with resident and agree with the resident's documentation except as noted. Also the patient's clinical case was discussed with the patient's nurse. This medical document was created using an electronic medical record system with computerized dictation system. Although this document has been carefully reviewed, there might still be some phonetic and typographical errors. These areas are purely typographical due to imperfections of the software programs, and do not reflect any compromise in the patient's medical care. Late signature. KAREEM IGNACIO RESIDENT Dec 04, 2024 14:13 ZEKE ROSENBERG Dec 05, 2024 06:06 CANDIE MCCANN MD Dec 06, 2024 14:54
[2024-12-04] MEDS: methylPREDNISolone SOD SUCC 40 MG/ML VL IV ONE (17:23)
--- NOTE | 2024-12-04 20:44 | DVH ---
EXAM: CT CT R WRIST WO CONTRAST HISTORY: rule out septic arthritis COMPARISON: XY R WRIST 2 VIEW XRAY on DOS: 12/04/24 TECHNIQUE: Noncontrast axial CT images of the right wrist were performed. Sagittal and coronal reform atted images were obtained. This CT exam was performed using one or more of the following dose reduct ion techniques: Automated exposure control, adjustment of the mA and/or kV according to patient size, or use of iterative reconstruction technique. CT Dose: CTDI volume is 7.75 mGy. Dose-length product is 196.78 mGy*cm. FINDINGS: Normal mineralization and alignment. There is severe 1st CMC joint osteoarthritis. Joint spaces other oconnell preserved. There is no acute fracture. there is mild degenerative change of the radiocarpal join t with osteophyte formation and mild joint space narrowing. Mild subcutaneous edema in the visualized right wrist and hand. No well-formed fluid collection is seen. The visualized tendons and ligaments are grossly intact although not optimally evaluated by CT. IMPRESSION: 1. No acute fracture or dislocation of the right wrist. 2. 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 Mild degenerative change of the radiocarpal joint with osteophyte formation. 3. Mild subcutaneous edema in the right wrist and right hand. No well-formed fluid collection or soft tissue gas.
[2024-12-04] MEDS: methylPREDNISolone SOD SUCC 40 MG/ML VL IV SCH (22:13)
[2024-12-04] MEDS: ATORVASTATIN 20 MG TAB PO SCH (22:14)
[2024-12-05] MEDS: VANCOMYCIN 1GM/250ML KIT 250 ML IV SCH (01:04)
[2024-12-05 04:55] VITALS: BP 91/67; PULSE 78; RESP 21; TEMP 97.7; O2SAT 94
[2024-12-05 06:37] LABS: Hematocrit 36.7 % (41.0-53.0); Hemoglobin 12.6 g/dL (13.5-17.5); Mean Corpuscular Hemoglobin 37.8 pg (28.0-32.0); Mean Corpuscular Volume 110.4 fL (80.0-100.0); Nucleated Red Blood Cells % 0.0 %
[2024-12-05 06:50] LABS: Albumin 3.8 g/dL (3.2-4.8); Alkaline Phosphatase 96 U/L (46-116); Anion Gap 10 (5-15); BUN/Creatinine Ratio 13.2 (10.0-20.0); Blood Urea Nitrogen 20 mg/dL (9-23); Calcium 8.9 mg/dL (8.7-10.4); Carbon Dioxide 27 mmol/L (20-31); Chloride 101 mmol/L (98-107); Magnesium 2.2 mg/dL (1.6-2.6); Potassium 4.7 mmol/L (3.5-5.1); Sodium 138 mmol/L (136-145); Total Protein 6.1 g/dL (5.7-8.2)
[2024-12-05 06:51] LABS: Bilirubin, Total 0.8 mg/dL (0.2-1.0)
[2024-12-05 07:22] LABS: Alanine Aminotransferase 47 U/L (7-40); Glucose 122 mg/dL (74-106)
[2024-12-05 08:00] VITALS: PULSE 85; RESP 18; O2SAT 95
[2024-12-05 09:00] VITALS: BP 108/89; PULSE 71; RESP 19; TEMP 97.6; O2SAT 98
--- NOTE | 2024-12-05 11:41 | DVHPNRES ---
Progress Note Date Seen: Dec 05, 2024 Resident Creating Document: BRADLEY GIBSON RESIDENT Medical Necessity Reason Pt with a Central, PICC or Fol: No Subjective Review of Systems 12/05/2024: Patient was seen and examined by me at the bedside. Patient was irritable today is he reported feeling cold and we increased the temperature of the room but he was not willing to speak much. However on inquiry, He reported that his cellulitis of the hand is getting better. Social service consult has been placed to access discharge needs. We have kept him back on a regular diet. Methylprednisolone was already given to the patient. Oral medication will be started tomorrow. Objective vital signs Vital Sign Date Time Temp Pulse Resp B/P (MAP) Pulse Ox O2 Delivery O2 Flow Rate FiO2 12/05/24 10:00 71 108/89 12/05/24 09:00 97.6 19 98 97.6 12/05/24 08:00 Room Air* 0 21 Total Intake and Output 12/04/24 12/04/24 12/05/24 15:00 23:00 07:00 Intake Total 460 ml 900 ml 850 ml Output Total 400 ml 700 ml Balance 460 ml 500 ml 150 ml medications Current Medications Medications Dose Ordered Sig/Shilpa Route Start Time Stop Time Status Last Admin Dose Admin Acetaminophen/ Hydrocodone Bitart 1 tab Q4HP PRN PO 12/03/24 23:30 12/05/24 10:21 1 TAB Ondansetron HCl 4 mg Q4HP PRN IV 12/03/24 23:30 Metoprolol Succinate 25 mg DAILY PO 12/04/24 10:00 12/04/24 10:28 25 MG Sacubitril/ Valsartan 1 tab BID PO 12/04/24 10:12/05/24 10:21 1 TAB Enoxaparin Sodium 100 mg Q12HR SC 12/04/24 10:00 12/05/24 10:23 100 MG Hydromorphone HCl 0.25 mg Q4HPRN PRN IV 12/04/24 00:15 Pantoprazole Sodium 40 mg DAILY IV 12/04/24 10:00 12/05/24 10:20 40 MG Empaglifozin 10 mg DAILY PO 12/04/24 10:00 12/05/24 10:21 10 MG Vancomycin HCl 0 ml @ 0 mls/hr UD IV 12/04/24 01:15 Zolpidem Tartrate 10 mg HSPRN PRN PO 12/04/24 04:15 Thiamine HCl 100 mg DAILY PO 12/04/24 10:00 12/05/24 10:21 100 MG Folic Acid 1 mg DAILY PO 12/04/24 10:00 12/05/24 10:21 1 MG Vancomycin HCl 250 ml @ 250 mls/hr DAILY@0100 IV 12/05/24 01:00 12/05/24 01:04 250 MLS/HR Atorvastatin Calcium 40 mg HS PO 12/04/24 22:00 12/04/24 22:14 40 MG Methylprednisolone Sodium Succinate 20 mg BID IV 12/04/24 22:00 12/05/24 10:20 20 MG Examination Pt is lying on bed General Appearance: Alert, Oriented X3, Cooperative, irritable today HEENT: Atraumatic, Mucous membranes moist/pink Respiratory: Clear to auscultation, Normal air movement, No added sounds Cardiovascular: Regular rate, Normal S1, Normal S2, No murmurs Abdominal: Active bowel sounds, Soft, no distention, no tenderness Extremities: No edema, Normal pulses, No tenderness/swelling Skin: Right forearm and wrist is swollen, red and tender on touch. Neuro: Normal speech, sensorimotor deficits none Psych/Mental Status: Mental status NL, Mood NL Nurse was there as dump worker during examination laboratory and microbiology Laboratory Tests 12/05/24 05:23 Test 12/05/24 05:23 Range/Units Serum Glucose 122 H 74-106 mg/dL Microbiology Date/Time Source Procedure Growth Status 12/04/24 00:13 Blood Blood Culture - Preliminary NO GROWTH AFTER 24 HOURS OF INCUBATION. Resulted Labs and/or images reviewed: Labs reviewed by me, Image(s) reviewed by me Problem List/Assessment/Plan Problem List/Assessment/Plan #Sepsis due to cellulitis right forearm # ?gout flare up # Lactic acidosis, leukocytosis - Blood culture pending report - DVT ruled out, Doppler ultrasound negative for upper extremity DVT. - continue vancomycin as prescribed - Ordered CT scan of the right wrist without contrast for further evaluation and care - continued methylprednisolone IV, oral prednisolone from tomorrow for suspected gouty arthritis. - social service director consult for accessing discharge need placed #Paroxysmal Atrial fibrillation -continue Lovenox as prescribed -pending echo 2D report # PAMELA on CKD likely due to VMN -ordered IV fluid, reassess tomorrow -avoid dehydration and nephrotoxic drugs -monitor renal function #Systolic/ diastolic congestive heart failure, no acute exacerbation clinical -continue Jardiance 10 mg p.o. daily -continue Entresto 24-26 mg p.o. b.i.d. -continue metoprolol 25 mg p.o. daily -pending echo 2D report #Hyperlipidemia -Atorvastatin 40 q.p.m. #Hypertension -continue Entresto 24-26 mg p.o. b.i.d. -continue metoprolol 25 mg p.o. daily #Insomnia -Zolpidem 10 mg daily #History of skin cancer, unspecified #History of bilateral knee replacement, hip surgery # history of BPH #Cannabinoid use Counseled on cessation -ordered CT scan of the right wrist without contrast, ordered 1 time methylprednisolone IV. Plan is to continue with the prednisolone 40 mg p.o. daily from tomorrow for suspected gouty arthritis. Plan is to rule out suspected septic arthritis. Pending echo 2D report GI prophylaxis: Pantoprazole DVT prophylaxis: Lovenox Diet: Regular diet Goals of care discussed with the patient: Full code status Case discussed with , patient and nurse. Plan discussed with: Patient, Other (rn) My Orders My Orders Orders - BRADLEY GIBSON RESIDENT Procedure Category Date Status Time * [employer] CONS 12/05/24 Transmitted Consult Dietary Evaluation Review Recommendations by RD: Dietary education by RD Comments: 1) Initiate MVI @ 1 tb qd 2) Advance to cardiac diet when medically feasible 3) Refer to outpatient RD for weight management 4) Follow-up with cardiology and nephrology 5) Continue to monitor I&O, labs, and skin integrity Expected Outcomes/Goals: 1) appetite and labs to improve 2) diet to advance 3) gradual wt loss 4) f/u in 3-5 days Date of Service: Dec 05, 2024 Billing Provider: CANDIE MCCANN MD Common Visit Codes: [id number] INP/OBS CARE(HIGH) Addendum Addendum Addendum I was physically present for the giron portions of the service provided to patient by THE RESIDENT. I have reviewed the documentation, discussed the case with resident and agree with the resident's documentation except as noted. Also the patient's clinical case was discussed with the patient's nurse. This medical document was created using an electronic medical record system with computerized dictation system. Although this document has been carefully reviewed, there might still be some phonetic and typographical errors. These areas are purely typographical due to imperfections of the software programs, and do not reflect any compromise in the patient's medical care. Late signature. BRADLEY GIBSON RESIDENT Dec 05, 2024 11:41 CANDIE MCCANN MD Dec 06, 2024 14:58
[2024-12-05 13:00] VITALS: BP 100/53; PULSE 76; RESP 19; TEMP 98.2; O2SAT 97
--- NOTE | 2024-12-05 14:03 | DVHSR ---
APPROVED REPORT EXAM: LIMITED Two-dimensional and M-mode echocardiogram with Doppler and color Doppler. Blood Pressure: 138/81 mmHg INDICATION CHF RISK FACTORS Obesity: Height: 5' 10", Weight: 215 DIMENSIONS LVDd5.4 (3.8-5.7cm)LA (2D)5.2 (1.9-4.0cm)Aortic Root4.0 (2.0-3.7cm) LVDs4.8 (2.5-4.0cm)LA (MM) (1.9-4.0cm)Aortic Cusp Exc2.1 (1.5-2.0cm) EF (%) 25.0 (55-70%)Rt. Atrium5.0 (1.9-4.0cm)Asc. Aorta cm IVSd1.3 (0.7-1.1cm)RV (D) (1.8-2.4cm) PWd1.3 (0.7-1.1cm) Mitral Valve MitralMitral Stenosis E wave0.80m/sMV Mean GR.mmHg A wave0.40m/sMV Peak GR.mmHg E/A ratio2.02D MVAcm2 Aortic Valve Aortic ValveAortic Stenosis V10.60m/Aleshia Mean GR.1mmHg V20.70m/Aleshia Peak GR.2mmHg LVOT Diameter2.7 (1.8-2.4cm)Doppler AVA4.91cm2 Tricuspid Valve TR Velocity3.50m/s [id number] Other Information Quality : Technically LimitedRhythm : Conclusion Technically difficult study. Atrial fibrillation. Concentric LVH. LV enlargement. Biatrial enlargement. Aortic root enlargement. Mild aortic sclerosis. Mitral tricuspid and pulmonic or structurally normal. Left ventricular function is diminished. EF is approximately 35% with global hypokinesis. RV functi on is diminished. Moderate tricuspid regurgitation. Elevated right ventricular pressures consistent with pulmonary hyp ertension. No pericardial effusion masses or vegetations.
[2024-12-05 17:00] VITALS: BP 113/65; PULSE 70; RESP 17; TEMP 97.4; O2SAT 95
[2024-12-05 20:00] VITALS: PULSE 71; RESP 16; O2SAT 95
[2024-12-06] VITALS (7 sets, daily range): BP systolic 108–153; BP diastolic 63–96; PULSE 53–87; RESP 17–20; TEMP 36.4; O2SAT 93–99
[2024-12-06 05:55] LABS: Mean Corpuscular Hemoglobin 37.2 pg (28.0-32.0); Nucleated Red Blood Cells % 0.0 %
[2024-12-06 05:59] LABS: Hematocrit 38.6 % (41.0-53.0); Hemoglobin 12.9 g/dL (13.5-17.5); Mean Corpuscular Volume 110.9 fL (80.0-100.0)
[2024-12-06 06:27] LABS: Chloride 104 mmol/L (98-107); Potassium 4.6 mmol/L (3.5-5.1); Sodium 139 mmol/L (136-145)
[2024-12-06 06:28] LABS: Anion Gap 10 (5-15); Carbon Dioxide 25 mmol/L (20-31)
[2024-12-06 06:29] LABS: Calcium 8.9 mg/dL (8.7-10.4)
[2024-12-06 06:33] LABS: BUN/Creatinine Ratio 14.1 (10.0-20.0); Blood Urea Nitrogen 21 mg/dL (9-23)
[2024-12-06 06:37] LABS: Glucose 135 mg/dL (74-106)
[2024-12-06] MEDS: ALLOPURINOL 100 MG TAB PO ONE (12:34)
[2024-12-06] MEDS: CEPHALEXIN 250 MG CAP PO SCH (12:34)
--- NOTE | 2024-12-06 12:47 | DVHDSRES ---
Discharge Summary Date of Admission Resident Creating Document: BRADLEY GIBSON RESIDENT Dec 03, 2024 at 23:26 Date of Discharge: Dec 06, 2024 Admitting Diagnosis Right upper extremity swelling and pain Labs/Diagnostic Data: Laboratory Results Test 12/06/24 05:11 12/05/24 05:23 12/04/24 04:55 12/03/24 23:30 White Blood Count 7.8 10^3/uL (4.4-10.8) Red Blood Count 3.48 10^6/uL (4.5-5.90) Hemoglobin 12.9 g/dL (13.5-17.5) Hematocrit 38.6 % (41.0-53.0) Mean Corpuscular Volume 110.9 fL (80.0-100.0) Mean Corpuscular Hemoglobin 37.2 pg (28.0-32.0) Mean Corpuscular Hemoglobin Concent 33.5 g/dL (32.0-36.0) Red Cell Distribution Width 14.5 % (11.8-14.3) Platelet Count 160 10^3/uL (140-450) Mean Platelet Volume 8.2 fL (6.9-10.8) Neutrophils (%) (Auto) 87.1 % (37.0-80.0) Lymphocytes (%) (Auto) 8.9 % (10.0-50.0) Monocytes (%) (Auto) 3.9 % (0.0-12.0) Eosinophils (%) (Auto) 0.0 % (0.0-7.0) Basophils (%) (Auto) 0.1 % (0.0-2.0) Neutrophils # (Auto) 6.8 10 ^3/uL (1.6-8.6) Lymphocytes # (Auto) 0.7 10 ^3/uL (0.4-5.4) Monocytes # (Auto) 0.3 10 ^3/uL (0-1.3) Eosinophils # (Auto) 0 10 ^3/uL (0-0.8) Basophils # (Auto) 0 10 ^3/uL (0-0.2) Nucleated Red Blood Cells 0.0 % Sodium Level 139 mmol/L (136-145) Potassium Level 4.6 mmol/L (3.5-5.1) Chloride Level 104 mmol/L (98-107) Carbon Dioxide Level 25 mmol/L (20-31) Anion Gap 10 (5-15) Blood Urea Nitrogen 21 mg/dL (9-23) Creatinine 1.49 mg/dL (0.700-1.30) Glomerular Filtration Rate Calc 47 mL/min (>90) BUN/Creatinine Ratio 14.1 (10.0-20.0) Serum Glucose 135 mg/dL (74-106) Calcium Level 8.9 mg/dL (8.7-10.4) Magnesium Level 2.2 mg/dL (1.6-2.6) Total Bilirubin 0.8 mg/dL (0.2-1.0) Aspartate Amino Transferase (AST) 54 U/L (13-40) Alanine Aminotransferase (ALT) 47 U/L (7-40) Alkaline Phosphatase 96 U/L (46-116) Total Protein 6.1 g/dL (5.7-8.2) Albumin 3.8 g/dL (3.2-4.8) Uric Acid 11.3 mg/dL (3.7-9.2) B-Type Natriuretic Peptide 307.84 pg/mL (0-100) Plasma/Serum Blood Alcohol < 3.0 mg/dL (<10) Lactic Acid Level 1.4 mmol/L (0.4-2.0) Test 12/03/24 21:37 12/03/24 18:32 12/03/24 16:32 Prothrombin Time 10.3 sec (9.3-11.8) Prothrombin Time INR 0.97 (0.9-1.15) Activated Partial Thromboplast Time 33.0 SEC (24.5-34.5) Urine Color Yellow (Yellow) Urine Clarity Clear (Clear) Urine pH 6.0 (5.0-9.0) Urine Specific [place] 1.029 (1.001-1.035) Urine Protein 2+ (Negative) Urine Ketones 1+ (Negative) Urine Blood Negative /uL (Negative) Urine Nitrite Negative (Negative) Urine Bilirubin Negative (Negative) Urine Urobilinogen 2 mg/dL (Negative) Urine Leukocyte Esterase Negative /uL (Negative) Urine RBC <1 /hpf (0 - 3) Urine Microscopic WBC < 1 /HPF (0-3) Urine Squamous Epithelial Cells Few /hpf (<5) Urine Bacteria None seen /hpf (None Seen) Urine Hyaline Casts Few /lpf (0 - 2) Urine Glucose 2+ mg/dL (Normal) Urine Opiates Screen Neg (NEGATIVE) Urine Fentanyl Screen Neg (NEGATIVE) Urine Barbiturates Screen Neg (NEGATIVE) Urine Phencyclidine Screen Neg (NEGATIVE) Urine Amphetamines Screen Neg (NEGATIVE) Urine Benzodiazepines Screen Neg (NEGATIVE) Urine Cocaine Screen Neg (NEGATIVE) Urine Cannabinoids Screen Pos (NEGATIVE) Hemoglobin A1c 5.4 % A1C (<5.7) Phosphorus Level 2.7 mg/dL (2.4-5.1) Direct Bilirubin 0.6 mg/dL (<0.3) Troponin I High Sensitivity 24 ng/L (</=54) C-Reactive Protein High Sensitivity 18.82 mg/dL (<1.0) Triglycerides Level 100 mg/dL (< 150) Cholesterol Level 157 mg/dL (< 200) LDL Cholesterol 77 mg/dL (< 100) HDL Cholesterol 61 mg/dL (40-59) Lipase 34 U/L (12-53) Vitamin B12 Level 754 pg/mL (211-911) Vitamin D 25-Hydroxy 32.7 ng/mL (30.0-100) Thyroid Stimulating Hormone (TSH) 1.60 uIU/mL (0.55-4.78) Other Laboratory Tests 12/06/24 05:11 Brief Hx & Hospital Course: This is a 79-year-old male with past medical history of skin cancer, atrial fibrillation, hypertension, HLD, congestive heart failure, presented to the ER with chief complain of upper extremity swelling. Patient reported that the swelling started 4 days back on Saturday in his right hand, progressively worsening, associated with pain which is described as crushing, 10/10, radiating up to the elbow. Patient denies any trauma, insect bite, fever, chills. Patient reports being seen at the [facility] urgent care, where a CT scan was done & the patient was referred to the ER for care. Lab workup revealed WBC 11.3, hemoglobin 12.8, MCV 110, sodium 132, serum creatinine 1.53, BUN 26, GFR 46, lactic acid 2.4, serum uric acid 11.3, serum bilirubin 1.5, UDS positive for cannabinoids. Serum alcohol> 3, urinalysis negative for UTI. Doppler study of the right upper extremity negative for DVT, chest i-dgd-Hskibcehj lower lung zone linear atelectasis. 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 CT scan of the right wrist revealed- No acute fracture or dislocation of the right wrist. 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 Mild degenerative change of the radiocarpal joint with osteophyte formation. Mild subcutaneous edema in the right wrist and right hand. No well-formed fluid collection or soft tissue gas. 2D revealed LVEF 35%, global hypokinesia. Moderate TR. RVSP 60. Patient is treated with antibiotic and also steroid for possible acute gouty arthritis. Patient's symptoms improved. Patient denied any pain today. Patient is being discharged home with Keflex as prescribed, prednisolone 40 mg p.o. daily for 5 days and also allopurinol as prescribed. Patient's meds were sent to the pharmacy electronically. Patient was advised to follow up with the primary care physician in 2 weeks, follow up at discharge clinic as per schedule. Patient was hemodynamically stable on discharge Physical examination on day of discharge: -General examination- awake, alert, oriented HEENT- PEERLA, no acute nasal discharge Cardiovascular- S1-S2 audible, RRR; no murmur Respiratory- CTAB, no wheeze or rhonchi Gastrointestinal-nontender, bowel sound+. Nondistended Musculoskeletal-no acute joint swelling or tenderness or redness extremity- no right wrist pain or tenderness today. Neurological- cranial nerves intact, no acute dysarthria or dysphagia Psychiatry- denies depression or SI or HI Skin- no acute rash or purpura Discussed with Dr. 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 daily for 5 days Allopurinol 50 mg p.o. daily Please resume other regular home medications Scheduled Allopurinol (Zyloprim Tablet), 0.5 TAB PO DAILY Apixaban Base (Eliquis), 5 MG PO BID, (Reported) Atorvastatin Calcium (Lipitor), 40 TAB PO QPM, (Reported) Cephalexin (Keflex Capsule), 1 CAP PO QID Dapagliflozin Propanediol (Farxiga), 10 MG PO DAILY, (Reported) Furosemide (Furosemide), 40 MG PO DAILY, (Reported) Metoprolol Tartrate (Metoprolol Tartrate), 25 MG PO DAILY, (Reported) Prednisone (Prednisone), 20 MG PO BID Sacubitril-Valsartan (Entresto 24-26 mg), 1 TAB PO BID, (Reported) Zolpidem Tartrate (Zolpidem Tartrate), 1 TAB PO QPM, (Reported) Discharge Statement: "Patient was advised to return to the ER or call 911 if any headaches, dizziness, shortness of breath, chest pain, abdominal pain, bleeding, fevers, or worsening of medical condition. Patient was counseled about treatment plan, medications, possible side effects, patientverbalized understanding. All questions were answered to the best of my ability. This discharge took greater then 30 minutes in planning, reviewing documentation, counseling the patient, and discussing with other team members." ASSESSMENT ASSESSMENT Assessment Addendum Addendum Addendum I was physically present for the giron portions of the service provided to patient by THE RESIDENT. I have reviewed the documentation, discussed the case with resident and agree with the resident's documentation except as noted. Also the patient's clinical case was discussed with the patient's nurse. This medical document was created using an electronic medical record system with computerized dictation system. Although this document has been carefully reviewed, there might still be some phonetic and typographical errors. These areas are purely typographical due to imperfections of the software programs, and do not reflect any compromise in the patient's medical care. Late signature. Date of Service: Dec 06, 2024 Billing Provider: CANDIE MCCANN MD Common Visit Codes: 43941-QKD/OBS DISCH DAY >30min KAREEM IGNACIO Dec 06, 2024 12:47 CANDIE MCCANN MD Dec 07, 2024 12:55
[2024-12-06] MEDS ORDERED: CEPH250C PO (14:22)
[2024-12-06] MEDS ORDERED: ALL100T PO (14:22)
[2024-12-06] MEDS ORDERED: PRED20TA2 PO (14:22)
[2024-12-06] MEDS ORDERED: predniSONE 20 MG TAB PO SCH (22:00)
[2024-12-07] MEDS ORDERED: ALLOPURINOL 100 MG TAB PO SCH (10:00)
== END 2024-12-06 17:54 | disposition home or self-care (01) | DRG 871 ==
LOC: ER 11:20 → OVERFLOW 23:26 → CENTRAL 12-04 04:00
PROVIDERS: ADMIT Internal Medicine; ATTEND Internal Medicine
DX: A41.9 Sepsis, unspecified organism (principal); N17.0 Acute kidney failure with tubular necrosis; E87.20 Acidosis, unspecified; L03.113 Cellulitis of right upper limb; I13.0 Hypertensive heart and chronic kidney disease with heart failure and stage 1 through stage 4 chronic kidney disease, or unspecified chronic kidney disease; I50.20 Unspecified systolic (congestive) heart failure; I48.0 Paroxysmal atrial fibrillation; E78.5 Hyperlipidemia, unspecified; G47.00 Insomnia, unspecified; M10.9 Gout, unspecified; N40.0 Benign prostatic hyperplasia without lower urinary tract symptoms; Z96.653 Presence of artificial knee joint, bilateral; F12.10 Cannabis abuse, uncomplicated; M18.11 Unilateral primary osteoarthritis of first carpometacarpal joint, right hand; I27.20 Pulmonary hypertension, unspecified; N18.9 Chronic kidney disease, unspecified; Z85.828 Personal history of other malignant neoplasm of skin; Z87.891 Personal history of nicotine dependence; Z86.718 Personal history of other venous thrombosis and embolism
CPT/HCPCS: 36415; 71045; 73100; 73200; 80048; 80053; 80061; 80076; 80307; 80320; 81001; 82306; 82565; 82607; 82746; 83036; 83605; 83690; 83735; 83880; 84100; 84443; 84484; 84550; 85025; 85610; 85730; 86141; 87040; 93306; 93971; 96365; 96367; 96375; 97163; G0378; J1885; J2405; J2470; J3490; J7060